=== PATIENT | female | born 1965 | race Caucasian/White ===

== ENCOUNTER 2016-08-24 14:20 | Observation (INO) ==
[2016-08-24] MEDS ORDERED: Aspirin 81 MG TAB.CHEW PO ONE (14:28)
[2016-08-24] MEDS ORDERED: Ipratropium/Albuterol Neb 3 ML IH ONE (14:34)
--- NOTE | 2016-08-24 14:34 | Emergency Department Note ---
Disposition Clinical Impression: Chest pain Qualifiers: Chest pain type: unspecified Qualified Code(s): R07.9 - Chest pain, unspecified Disposition: Admitted As Inpatient Condition: Good Referrals: Huong Kitchen CNP [Primary Care Provider] - Forms: ED Satisfaction Letter Time of Disposition: 15:42 Chest Pain HPI - General Chief Complaint: ED Chest Pain Stated Complaint: CP/SOB Time Seen by Provider: 08/24/16 14:28 Source: patient Limitations: no limitations Vital Signs Reviewed: Yes Nursing Notes Reviewed: Yes - History of Present Illness HPI Narrative: 51-year-old female with a history of coronary artery disease 1 stent 2 years ago comes in complaining of some weight gain and shortness of breath and some chest pain. Patient states she has not had any recent cardiac workup. Patient does have a history of coronary artery disease with multiple risk factors including hypertension diabetes family history cigarette smoking. 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 Duration: constant Onset: during rest Pain Location: substernal, left chest Severity scale (1-10): 10 Quality: tightness, aching Pain Radiation: none Improves with: nothing Worsens with: exertion Associated symptoms: Denies: nausea, vomiting Treatments prior to arrival chest pain: aspirin - Related Data Home Medications Medication Instructions Recorded Confirmed Alprazolam [Xanax] 0.5 mg PO BID PRN 03/17/15 01/30/16 Aspirin 81 mg PO QAM 03/17/15 01/30/16 Atorvastatin [Lipitor] 80 mg PO QPM 03/17/15 01/30/16 Clopidogrel [Plavix] 75 mg PO QAM 03/17/15 01/30/16 GlipiZIDE [Glucotrol] 5 mg PO QAM 03/17/15 01/30/16 Insulin Glargine,Hum.rec.anlog 30 unit SQ HS 03/17/15 01/30/16 [Lantus Solostar] Metformin [Glucophage] 1,000 mg PO BID 03/17/15 01/30/16 Metoprolol [Lopressor] 25 mg PO BID 03/17/15 01/30/16 Pregabalin [Lyrica] 150 mg PO BID 03/17/15 01/30/16 Citalopram [CeleXA] 20 mg PO QPM 06/06/15 01/30/16 Ergocalciferol (VITAMIN D2) 50,000 unit PO SUTH 06/06/15 01/30/16 [Vitamin D2 (50,000 UNIT)] Hydrocodone/Acetaminophen [[place] 1 tab PO Q4-6H PRN 06/06/15 01/30/16 10-325 Tablet] Lansoprazole [Prevacid] 30 mg PO DAILY 06/06/15 01/30/16 Losartan/Hydrochlorothiazide 1 each PO QAM 06/06/15 01/30/16 [Hyzaar 50-12.5 Tablet] Nitroglycerin 0.4 mg SL AD PRN 06/06/15 01/30/16 Ropinirole [Requip] 0.25 mg PO HS 06/06/15 01/30/16 Mometasone Furoate [Nasonex] 2 spray NS DAILY 11/09/15 01/30/16 Ondansetron HCl [Zofran] 4 - 8 mg PO TID PRN 11/09/15 01/30/16 Oxygen 2 l NS AD 11/09/15 01/30/16 Previous Rx's Medication Instructions Recorded Albuterol Neb [AccuNeb] 0.63 mg IH Q4H PRN #25 units 01/23/16 Allergies Allergy/AdvReac Type Severity Reaction Status Date / Time No Known Allergies Allergy Verified 03/17/15 12:11 Constitutional: Denies: fever, chills, weakness, weight change Eyes: Denies: eye pain, eye discharge, vision change ENT ED: Denies: ear pain, throat pain, dental pain, hearing loss, epistaxis, congestion, dysphagia Cardiovascular: Reports: chest pain, dyspnea on exertion. Denies: palpitations , edema, syncope Respiratory: Reports: cough, dyspnea. Denies: wheezes, hemoptysis, stridor Gastrointestinal: Denies: abdominal pain, nausea, vomiting, diarrhea, constipation, hematemesis, melena, hematochezia Genitourinary: Denies: dysuria, frequency, hematuria, discharge Musculoskeletal: Denies: back pain, neck pain, arthralgia, myalgia Integumentary: Denies: rash, abrasion, lesions Neurological: Denies: headache, weakness, numbness, paresthesias, confusion, abnormal gait, vertigo Psychiatric: Denies: anxiety, depression, suicidal thoughts, homicidal thoughts , auditory hallucinations, visual hallucinations Endocrine: Denies: fatigue Hematological/Lymphatic: Denies: easy bleeding, easy bruising Allergic/Immunologic: Denies: facial swelling, urticaria Chest Pain PMH - Past Medical History Medical history: Reports: arthritis, COPD, coronary artery disease, diabetes, fibromyalgia, GERD, hyperlipidemia, hypertension, myocardial infarction, peripheral artery disease, other Surgical history: Reports: angioplasty/stent, appendectomy, cholecystectomy, hysterectomy, other Psychiatric history: Reports: anxiety, depression 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: Reports: no 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 - Social History Smoking Status: Current every day smoker Alcohol use: Reports: none Drug use: Reports: none Physical Exam - General Limitations: no limitations General appearance: alert - Head Head exam: atraumatic, normocephalic, normal inspection - Eye Eye exam: Present: normal appearance, PERRL, EOMI - ENT ENT exam: normal exam, normal oropharynx, mucous membranes moist - Neck Neck exam: Present: normal inspection, full ROM, trachea midline - Chest Chest inspection: Present: normal inspection, symmetric chest wall rise - Respiratory Respiratory exam: Present: wheezes, prolonged expiratory phase - Cardiovascular Cardiovascular exam: Present: regular rate, normal rhythm, normal heart sounds - Abdominal Exam Abdominal exam: Present: soft, Non-Tender. Absent: tenderness, distention, guarding, rebound, rigidity - Extremities Exam Extremities exam: Present: normal inspection, full ROM. Absent: tenderness, pedal edema - Expanded Lower Extremity Exam Neurovascular/Tendon exam: Absent: motor deficit, sensory deficit, tendon deficit Gait: observed and normal - Back Exam Back exam: Present: normal inspection, full ROM. Absent: tenderness - Neurological Exam Neurological exam: Present: alert, oriented X3 - Psychiatric Psychiatric exam: Present: normal affect, normal mood - Skin Skin exam: Present: warm, dry, intact, normal color Course - Reevaluation(s) Reevaluation #1: 51-year-old comes in complaining of intermittent chest pain has a history of coronary artery disease. Workup here in emergency department is negative doesn' t appear to have failure. Echo done 08/03/2015 shows EF of 60%. No recent stress testing or cardiac catheter. Will admit patient for evaluation. Time: 15:36 - Consultations Consultation #1: Discussed with Dr. Askew, admit Time: 15:42 Vital Signs Temperature 97.5 F L 02/05/17 14:21 Pulse Rate 73 08/24/16 14:21 Respiratory Rate 14 08/24/16 14:21 Blood Pressure 148/82 08/24/16 14:21 O2 Sat by Pulse Oximetry 96 08/24/16 14:21 Temperature 97.5 F L 08/24/16 14:21 Pulse Rate 71 08/24/16 15:01 Respiratory Rate 17 08/24/16 15:01 Blood Pressure 137/74 08/24/16 15:01 O2 Sat by Pulse Oximetry 97 08/24/16 15:01 Oxygen Delivery Oxygen Delivery Room Air Chest Pain - Lab Data Lab results reviewed: Yes I reviewed the patient's lab results. Result diagrams: 08/24/16 14:50 08/24/16 14:50 Lab Results 08/24/16 08/24/16 08/24/16 Range/Units 14:50 14:50 14:50 WBC 8.9 (4.3-11.1) K/mcL RBC 4.17 (3.82-4.97) M/mcL Hgb 12.8 (11.5-15.4) g/dL Hct 38.5 (35.3-44.9) % MCV 92.3 (83.0-100.0) fL MCH 30.7 (28.0-33.3) pg MCHC 33.2 (31.6-35.5) g/dL RDW 12.9 (11.5-14.5) % Plt Count 175 (140-400) K/mcL MPV 9.1 L (9.4-12.4) fL Immature Gran % 0.3 (0-4) % Seg Neutrophils % 46.3 % Lymphocytes % 44.0 % Monocytes % 5.5 % Eosinophils % 3.6 % Basophils % 0.3 % Neutrophils # 4.1 (1.6-8.9) K/mcL Lymphocytes # 3.9 (0.6-4.6) K/mcL Monocytes # 0.5 (0.0-1.3) K/mcL Eosinophils # 0.3 (0.0-0.6) K/mcL Basophils # 0.0 (0.0-0.2) K/mcL PT 11.1 (9.4-12.1) Seconds INR 1.0 APTT 33.0 (26.0-36.0) Seconds Sodium (136-145) mEq/L Potassium (3.5-4.5) mEq/L Chloride (98-109) mEq/L Carbon Dioxide (19-29) mEq/L BUN (7-20) mg/dL Creatinine (0.57-1.11) mg/dL Est GFR ( Amer) (> 60) Est GFR (Non-Af Amer) (> 60) BUN/Creatinine Ratio (6-26) Glucose (70-99) mg/dL Calculated Osmolality (280-300) Calcium (8.6-10.8) mg/dL Troponin I (0-0.03) ng/mL B-Natriuretic Peptide 100 (0-100) pg/mL 08/24/16 08/24/16 Range/Units 14:50 14:50 WBC (4.3-11.1) K/mcL RBC (3.82-4.97) M/mcL Hgb (11.5-15.4) g/dL Hct (35.3-44.9) % MCV (83.0-100.0) fL MCH (28.0-33.3) pg MCHC (31.6-35.5) g/dL RDW (11.5-14.5) % Plt Count (140-400) K/mcL MPV (9.4-12.4) fL Immature Gran % (0-4) % Seg Neutrophils % % Lymphocytes % % Monocytes % % Eosinophils % % Basophils % % Neutrophils # (1.6-8.9) K/mcL Lymphocytes # (0.6-4.6) K/mcL Monocytes # (0.0-1.3) K/mcL Eosinophils # (0.0-0.6) K/mcL Basophils # (0.0-0.2) K/mcL PT (9.4-12.1) Seconds INR APTT (26.0-36.0) Seconds Sodium 140 (136-145) mEq/L Potassium 3.7 (3.5-4.5) mEq/L Chloride 103 (98-109) mEq/L Carbon Dioxide 27 (19-29) mEq/L BUN 9 (7-20) mg/dL Creatinine 0.62 (0.57-1.11) mg/dL Est GFR ( Amer) > 60 (> 60) Est GFR (Non-Af Amer) > 60 (> 60) BUN/Creatinine Ratio 15 (6-26) Glucose 94 (70-99) mg/dL Calculated Osmolality 288 (280-300) Calcium 9.4 (8.6-10.8) mg/dL Troponin I 0.00 (0-0.03) ng/mL B-Natriuretic Peptide (0-100) pg/mL - Radiology Data Radiology results reviewed: Yes I reviewed the patient's radiology results. Chest X-Ray 08/24/16 14:28 IMPRESSION: No acute cardiopulmonary disease. D/ / 08/24/2016 14:50:14 Eyad Foster MD / jonathan Interpreting Provider: Eyad Foster MD - EKG Data EKG attestation: Yes I reviewed and interpreted this EKG. EKG shows normal: sinus rhythm Rate: normal Rhythm: NSR Interpretation: no acute changes Heart Score - Score History: Moderately Suspicious EKG: Normal Age: 45-65 Risk Factors: Equal/Greater than 3 risk factor or history of atherosclerotic disease Troponin: Less than normal limit HEART Score Total: 4
[2016-08-24 14:58] LABS: Hematocrit 38.5 % (35.3-44.9); Hemoglobin 12.8 g/dL (11.5-15.4); Immature Granulocytes % 0.3 % (0-4); Mean Corpuscular HGB Conc 33.2 g/dL (31.6-35.5); Mean Corpuscular Hemoglobin 30.7 pg (28.0-33.3); Mean Corpuscular Volume 92.3 fL (83.0-100.0); Mean Platelet Volume 9.1 fL (9.4-12.4); Monocytes % 5.5 %; Platelet Count 175 K/mcL (140-400); Red Blood Count 4.17 M/mcL (3.82-4.97); Red Cell Distribution Width 12.9 % (11.5-14.5); Segmented Neutrophils % 46.3 %
[2016-08-24 14:59] LABS: Basophils % 0.3 %; Eosinophils # 0.3 K/mcL (0.0-0.6); Eosinophils % 3.6 %; Lymphocytes # 3.9 K/mcL (0.6-4.6); Monocytes # 0.5 K/mcL (0.0-1.3); Neutrophils # 4.1 K/mcL (1.6-8.9)
[2016-08-24 15:08] LABS: Prothrombin Time 11.1 Seconds (9.4-12.1)
[2016-08-24 15:10] LABS: BUN/Creatinine Ratio 15 (6-26); Blood Urea Nitrogen 9 mg/dL (7-20); Calcium 9.4 mg/dL (8.6-10.8); Carbon Dioxide 27 mEq/L (19-29); Chloride 103 mEq/L (98-109); Glucose 94 mg/dL (70-99); Osmolality,Calculated 288 (280-300); Potassium 3.7 mEq/L (3.5-4.5); Sodium 140 mEq/L (136-145); eGFR For African Americans > 60 (> 60); eGFR For Non-African Americans > 60 (> 60)
[2016-08-24] MEDS ORDERED: *HR* Promethazine 25 MG/ML VIAL IVP ONE (15:31)
[2016-08-24] MEDS ORDERED: *HR* HYDROmorphone (PF) 1 MG/ML SYRINGE IVP ONE (15:31)
[2016-08-24] MEDS ORDERED: Nitroglycerin 0.4 MG TAB.SUBL SL PRN (16:46)
--- NOTE | 2016-08-24 16:46 | Internal Med History&Physical ---
Date of Encounter: 08/24/16 Time of Encounter: 16:30 Assessment and Plan (1) Chest pain Current visit: Yes Status: Acute Rule out ACS. Patient with risk factors including diabetes, CAD, and positive family history. first troponin is negative. EKG shoed NSR HR 64. She received aspirin and dilaudid. HEr pain is better. follow up serial troponins. EKG in AM. If these are negative, I she will have stress test. Qualifiers: Chest pain type: unspecified Qualified Code(s): R07.9 - Chest pain, unspecified (2) CAD (coronary artery disease) Current visit: No Status: Chronic ASA, lipitor, metoprolol Qualifiers: Coronary Disease-Associated Artery/Lesion type: [place] artery [place] vs. transplanted heart: [place] heart Associated angina: with unspecified angina Qualified Code(s): I25.119 - Atherosclerotic heart disease of [place] coronary artery with unspecified angina pectoris (3) Diabetes Current visit: No Status: Chronic glucose is 94. ISS. hold metformin. diabetic diet. 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 resume hyzaar. Qualifiers: Hypertension type: essential hypertension Qualified Code(s): I10 - Essential (primary) hypertension (5) Nicotine abuse Current visit: No Status: Chronic nicotine patch. counseled to quit. (6) Obesity Current visit: No Status: Chronic bmi 36. Qualifiers: Obesity type: due to excess calories Obesity severity: morbid Qualified Code(s): E66.01 - Morbid (severe) obesity due to excess calories (7) SPRING on CPAP Current visit: No Status: Chronic Internal Medicine - H&P: HPI Chief complaint: Precordial chest pain this morning Admitted From: Home Plans for Post Hospital Care: Home History of present illness: Ms. Enriquez is a 51 year old female with past medical history of diabetes, CAD status post 1 stent 2 years ago, COPD, hypertension and tobacco use. These morning, she woke up she was getting ready for work she developed precordial chest pain that radiated to her left shoulder blade and was associated with shortness of breath. No syncope. No palpitations. No fever. Cough. No lower extremity swelling. No bleeding. No stomach pain. No urinary complaints. No focal deficit. No headache. In ED, she received aspirin and IV Dilaudid. Her chest pain is still 8/10. Past Med Surg Social Fam HX - Past Medical History Medical history: arthritis, COPD, coronary artery disease, diabetes, fibromyalgia, GERD, hyperlipidemia, hypertension, myocardial infarction, peripheral artery disease, other Psychiatric history: anxiety, depression - Past Surgical History Surgical History: angioplasty/stent, appendectomy, cholecystectomy, hysterectomy , other - Social History Smoking Status: Current every day smoker Smokeless Tobacco Status: No Alcohol use: none Drug use: none - Family History Mother Adopted: No Family Member Ethnicity: Non- Living Status: Hx Family Cardiac Disorders: Yes (heart attacks, multiple stents) Hx Family Endocrine Disorder: Yes (DM) Internal Medicine - H&P: Meds Alprazolam [Xanax] 0.5 mg PO BID PRN 03/17/15 [History] Aspirin 81 mg PO QAM 03/17/15 [History] Atorvastatin [Lipitor] 80 mg PO QPM 03/17/15 [History] Insulin Glargine,Hum.rec.anlog [Lantus Solostar] 30 unit SQ HS 03/17/15 [History ] Metformin [Glucophage] 1,000 mg PO BID 03/17/15 [History] Metoprolol [Lopressor] 25 mg PO BID 03/17/15 [History] Pregabalin [Lyrica] 150 mg PO BID 03/17/15 [History] Citalopram [CeleXA] 20 mg PO QPM 06/06/15 [History] Hydrocodone/Acetaminophen [[place] 10-325 Tablet] 1 tab PO Q4-6H PRN 06/06/15 [ History] Lansoprazole [Prevacid] 30 mg PO DAILY 06/06/15 [History] Losartan/Hydrochlorothiazide [Hyzaar 50-12.5 Tablet] 1 tab PO QAM 06/06/15 [ History] Nitroglycerin 0.4 mg SL AD PRN 06/06/15 [History] Ropinirole [Requip] 0.25 mg PO HS 06/06/15 [History] Mometasone Furoate [Nasonex] 2 spray NS DAILY 11/09/15 [History] Ondansetron HCl [Zofran] 4 - 8 mg PO TID PRN 11/09/15 [History] Oxygen 2 l NS AD 11/09/15 [History] Albuterol Neb [AccuNeb] 0.63 mg IH Q4H PRN #25 units 01/23/16 [Rx] Allergies No Known Allergies Allergy (Verified 03/17/15 12:11) All Systems PM: A 10-system review of systems was performed and is negative for pertinent findings except as documented above in the HPI. - Constitutional Vitals: Temp Pulse Resp BP Pulse Ox 97.5 F L 70 18 153/86 98 08/24/16 14:21 08/24/16 15:51 08/24/16 16:27 08/24/16 16:27 08/24/16 15:51 General appearance: Present: A&O X 3, no acute distress, answers questions appropriately - Eye Eye exam: Present: PERRL, sclera anicteric - Neck Neck exam general surgery: Present: supple, trachea midline. Absent: lymphadenopathy - Respiratory Respiratory exam: Present: CTAB - Cardiovascular Cardiovascular exam: Present: RRR - GI/Abdominal GI/Abdominal exam: Present: normal bowel sounds, soft. Absent: distended, tenderness - Extremities Exam Extremities exam: Absent: pedal edema - Back Exam Back exam: Absent: CVA tenderness (L), CVA tenderness (R) - Neurological Exam Neurological exam: Present: alert, oriented X3. Absent: facial droop, speech deficit - Skin Skin exam: Present: intact. Absent: rash Internal Med - H&P Results - Labs CBC & Chem 7: 08/24/16 14:50 08/24/16 14:50
[2016-08-24] MEDS ORDERED: Naloxone 0.4 MG/ML INJ IVP PRN (16:49)
[2016-08-24] MEDS ORDERED: Acetaminophen 325 MG TABLET PO PRN (16:49)
[2016-08-24] MEDS ORDERED: Ondansetron 4 MG/2 ML VIAL IVP PRN (16:49)
[2016-08-24] MEDS ORDERED: ALPRAZolam 0.5 MG TABLET PO PRN (16:51)
[2016-08-24] MEDS ORDERED: Albuterol Neb 0.63 MG/3 ML VIAL IH PRN (16:51)
[2016-08-24] MEDS ORDERED: D5% in Water 1,000 ML IV PRN (17:35)
[2016-08-24] MEDS ORDERED: Dextrose Gel 15 GM PO PRN ×2 (17:35)
[2016-08-24] MEDS ORDERED: *HR* Dextrose 50 % in Water (Syg) 50 ML SYRINGE IVP PRN (17:35)
[2016-08-24] MEDS: *HR* HYDROcodone/Acet 10/325 mg TABLET PO PRN (18:37)
[2016-08-24] MEDS: Insulin LISPRO 300 UNITS/3 ML VIAL SQ SCH (20:07)
[2016-08-24] MEDS: Pregabalin 75 MG CAPSULE PO SCH (21:32)
[2016-08-24] MEDS: rOPINIRole 0.25 MG TABLET PO SCH (21:32)
[2016-08-25 01:02] LABS: Basophils % 0.2 %; Eosinophils # 0.3 K/mcL (0.0-0.6); Eosinophils % 2.9 %; Hematocrit 35.3 % (35.3-44.9); Hemoglobin 11.9 g/dL (11.5-15.4); Immature Granulocytes % 0.3 % (0-4); Immature Platelets 1.9 % (1.1-6.1); Lymphocytes # 3.9 K/mcL (0.6-4.6); Lymphocytes % 39.3 %; Mean Corpuscular HGB Conc 33.7 g/dL (31.6-35.5); Mean Corpuscular Hemoglobin 31.2 pg (28.0-33.3); Mean Corpuscular Volume 92.4 fL (83.0-100.0); Mean Platelet Volume 9.4 fL (9.4-12.4); Monocytes # 0.6 K/mcL (0.0-1.3); Monocytes % 5.6 %; Neutrophils # 5.1 K/mcL (1.6-8.9); Platelet Count 163 K/mcL (140-400); Red Blood Count 3.82 M/mcL (3.82-4.97); Red Cell Distribution Width 13.1 % (11.5-14.5); Segmented Neutrophils % 51.7 %
[2016-08-25 01:13] LABS: BUN/Creatinine Ratio 19 (6-26); Blood Urea Nitrogen 12 mg/dL (7-20); Calcium 8.9 mg/dL (8.6-10.8); Carbon Dioxide 27 mEq/L (19-29); Chloride 105 mEq/L (98-109); Glucose 111 mg/dL (70-99); Magnesium 1.4 mg/dL (1.6-2.6); Osmolality,Calculated 290 (280-300); Phosphorous 4.8 mg/dL (2.3-4.7); Potassium 3.6 mEq/L (3.5-4.5); Sodium 140 mEq/L (136-145); eGFR For African Americans > 60 (> 60); eGFR For Non-African Americans > 60 (> 60)
[2016-08-25] MEDS: *HR* HYDROcodone/Acet 10/325 mg TABLET PO PRN ×2 (03:07→14:01)
[2016-08-25] MEDS: Insulin LISPRO 300 UNITS/3 ML VIAL SQ SCH ×4 (07:38→20:48)
[2016-08-25] MEDS ORDERED: Regadenoson 0.4 MG/5 ML SYRINGE IVP ONE (09:40)
[2016-08-25] MEDS ORDERED: Magnesium Sulfate 2 GM in D5% in Water 100 ML IVPB ONE (11:53)
--- NOTE | 2016-08-25 12:36 | Nuclear Medicine Stress Report ---
Regadenoson Nuclear Stress Name: Justina Enriquez Date of Study: 08/25/2016 Date: 1965 Ht: 65.0 in Medical Record#: [id number] Age: 51 Wt: 217.0 lb Gender: Female Order #: [id number] Location: [facility] Room: [facility] Supervising Provider: Shin Gonzalez CNP Reading Physician: Nely Finley DO Ordering Physician: Melanie Jarrett MD Primary Care Physician: None Stress Technologist: Padmini Parker HAND PICKER, CCT Burn Nurse: Alaina Whalen Indications: Chest Pain Impression: Technically challenging study with suboptimal imaging. There are 2 separate defects in which ischemia cannot be ruled out. There is a small sized, mild intensity perfusion defect during stress involving the mid to distal anteroseptal wall. There is also small sized, mild intensity primarily fixed apical and apical inferior perfusion defect that is mildly worse on stress. Normal wall motion suggests against the presence of infarct. Pharmacologic ECG was negative for ischemia. Gated EF = 64%. History: Hypertension Diabetes Hypercholesteremia History of Smoking Prior PCI Stress Test Summary: Stress Test Type: Pharmacologic Regadenoson 0.4mg/5ml given IV Baseline Information: Initial Heart Rate: 62 Blood Pressure: 132/78 Stress Information: Test Terminated Due to (primary): As per protocol Maximum Blood Pressure: 116/66 Maximum Heart Rate: 86 Percent Maximum Heart Rate Achieved: 51 Double Product: 9976 METS Reached: 1 Symptoms: No chest symptoms Nuclear Summary: SPECT myocardial perfusion imaging using Tc99m Sestamibi given intravenously was performed at rest and following cardiac stress testing. The resting images were obtained following initial dose of 11.4 mCi. Following stress an additional dose of 34.8 mCi was given at peak exercise or 30 seconds post regadenoson infusion. Medication Given: Time Medication Dose Units Route Findings: Stress Note * Resting ECG demonstrated normal sinus rhythm with possible old anteroseptal VA. * Pharmacologic stress ECG is negative for ischemia at level of heart rate achieved. * No arrhythmias were noted during stress. * Patient had no chest pain during stress. Hemodynamic responses * Normal hemodynamic responses to pharmacologic stress. Study Quality * Technically difficult/limited study. Gated EF % * Gated EF = 64%. Left Ventricle * The left ventricle is not dilated. TID * No evidence of transient ischemic dilatation. Lung Uptake * There is no evidence of increase lung uptake. NORMALS * Normal wall motion. PERFUSION * There is a small sized, mild intensity primarily fixed apical and apical inferior perfusion defect that is mildly worse on stress. * There is also a small sized mild intensity perfusion defect in the mid to distal anteroseptal wall during stress. * Hot spot in the inferoseptum. Updated by Nely Finley on 08/25/2016 12:18:16 PM electronically signed on 08/25/2016 12:29:56 PM with status of Final
[2016-08-25] MEDS: Pregabalin 75 MG CAPSULE PO SCH ×2 (12:58→20:54)
[2016-08-25] MEDS: Aspirin 81 MG TAB.CHEW PO SCH (12:58)
[2016-08-25] MEDS: Losartan/HCTZ 50-12.5 TABLET PO SCH (12:58)
--- NOTE | 2016-08-25 14:53 | Cardiology Consult Note ---
Date of Encounter: 08/25/16 Time of Encounter: 14:42 Assessment and Plan (1) Coronary artery disease with stable angina pectoris Current Visit: Yes Status: Acute - multiple cardiac risk factors including CAD s/p PCI 2014 with MARY LOU to mid RCA, 0.5 ppd smoker, HTN, HLD, IDDM, and morbid obesity - typical and atypical chest pain features, constant chest pressure with radiation to left shoulder which has improved since initial presentation with associated cough and URI symptoms - troponin negative x4 - EKG is NSR without acute ischemic changes - abnormal stress test revealing small sized, mild intensity perfusion defect during stress involving mid to distal anteroseptal wall and a small sized mild intensity primarily fixed perfusion deficit to apical and apical inferior worse on stress - last stress test 05/2015 also showed small apical inferior ischemic with normal EF but remained consistent ot prior study and medical management was decided - continue ASA, ARB, statin, and BB - last LHC 12/2014 with 99% stenosis of mid RCA, received MARY LOU and mild stenotic disease to other vessels - consideration for possible LHC tomorrow, will try medical management today and reassess, start on Imdur 30 mg - NPO at midnight Qualifiers: Coronary Disease-Associated Artery/Lesion type: [place] artery [place] vs. transplanted heart: [place] heart Qualified Code(s): I25.118 - Atherosclerotic heart disease of [place] coronary artery with other forms of angina pectoris (2) Tobacco abuse Current Visit: Yes Status: Acute - encouraged smoking cessation, patient continues to cut down - currently 0.5 ppd Discussion w patient/family: The assessment and plan as outlined above was discussed with the patient and/or family members who expressed understanding and agreement. All questions were answered. Thank you for involving us in the care of your patient. Please call with any questions. History of Present Illness Consult date: 08/25/16 Requesting physician: Sirisha Jarrett Consult reason: Chest pain, abnormal stress test Chief complaint: CP History of present illness: Ms. Enriquez is a 51 year old female with a past medical history of CAD s/p PCI 2014 (MARY LOU mid RCA), COPD, HTN, PVD, DM, HLD, current smoker 0.5 ppd, and morbid obesity presented to the ED for chest pain. Describes retrosternal sharp chest pressure with radiation to the left shoulder, admits to associated shortness of breath, diaphoresis and nausea. Denies any lightheadedness, vomiting, palpitations, or syncope. Similar to her normal angina. In the ED she received a baby aspirin and dilaudid with mild improvement in her pain. Reports URI symptoms over the past 1 week with cough and congestion. Denies any recent travel, surgeries, or trauma. Troponin negative x4. EKG reviewed and did not show any acute ischemic changes. Stress test 08/25 revealed a small sized, mild intensity perfusion defect during stress involving mid to distal anteroseptal wall and a small sized mild intensity primarily fixed perfusion deficit to apical and apical inferior worse on stress. Last stress test 05/2015 also showed small apical inferior ischemic with normal EF but remained consistent ot prior study and medical management was decided. Important CV studies: - ECHO 08/03/15 - EF 60% without wall motion abnormality - Holter 08/07/15 - NSR with occasional PVC - C 12/2014 - EF 55%, 99% stenosis mid RCA, MARY LOU placed - 40% stenosis mid LAD - 30% stenosis prox LAD - 30% stenosis 1st diagonal - 30% stenosis prox and mid circumflex - 30% stenosis 1st OM Past Med Surg Social Fam HX - Past Medical History Medical history: arthritis, COPD, coronary artery disease, diabetes, fibromyalgia, GERD, hyperlipidemia, hypertension, myocardial infarction, peripheral artery disease, other Psychiatric history: anxiety, depression - Past Surgical History Surgical History: angioplasty/stent, appendectomy, cholecystectomy, hysterectomy , other - Social History Smoking Status: Current every day smoker Packs per day: 0.5 Smokeless Tobacco Status: No Alcohol use: none Drug use: none - Family History Mother Adopted: No Family Member Ethnicity: Non- Living Status: Hx Family Cardiac Disorders: Yes (heart attacks, multiple stents) Hx Family Endocrine Disorder: Yes (DM) Medications and Allergies Alprazolam [Xanax] 0.5 mg PO BID PRN 03/17/15 [History] Aspirin 81 mg PO QAM 03/17/15 [History] Atorvastatin [Lipitor] 80 mg PO QPM 03/17/15 [History] Insulin Glargine,Hum.rec.anlog [Lantus Solostar] 30 unit SQ HS 03/17/15 [History ] Metformin [Glucophage] 1,000 mg PO BID 03/17/15 [History] Metoprolol [Lopressor] 25 mg PO BID 03/17/15 [History] Pregabalin [Lyrica] 150 mg PO BID 03/17/15 [History] Citalopram [CeleXA] 20 mg PO QPM 06/06/15 [History] Hydrocodone/Acetaminophen [[place] 10-325 Tablet] 1 tab PO Q4-6H PRN 06/06/15 [ History] Lansoprazole [Prevacid] 30 mg PO DAILY 06/06/15 [History] Losartan/Hydrochlorothiazide [Hyzaar 50-12.5 Tablet] 1 tab PO QAM 06/06/15 [ History] Nitroglycerin 0.4 mg SL AD PRN 06/06/15 [History] Ropinirole [Requip] 0.25 mg PO HS 06/06/15 [History] Mometasone Furoate [Nasonex] 2 spray NS DAILY 11/09/15 [History] Ondansetron HCl [Zofran] 4 - 8 mg PO TID PRN 11/09/15 [History] Oxygen 2 l NS AD 11/09/15 [History] Albuterol Neb [AccuNeb] 0.63 mg IH Q4H PRN #25 units 01/23/16 [Rx] Allergies No Known Allergies Allergy (Verified 03/17/15 12:11) All Systems Review: A 10-system review of systems was performed and is negative for pertinent findings except as documented above in the HPI. - Constitutional Constitutional: chills, no fever(s), no headache(s) - Cardiovascular Cardiovascular: as per HPI, chest pain at rest, chest pain with exertion, dyspnea on exertion, no dyspnea at rest - Respiratory Respiratory: cough, dyspnea - Gastrointestinal Gastrointestinal: no abdominal pain Physical Examination Vital Signs, Last 4 Hours Temp Pulse Resp BP Pulse Ox 08/25/16 12:00 98.1 F 77 16 124/80 94 L General: Conversant, No Apparent Distress HEENT: Atraumatic, Normocephaly, Mucus Membranes Moist Neck: No JVD, Normal carotid pulses Cardiac: Reg Rate and Rhythm, Normal S1 and S2, No Murmur Lungs: Normal Breath Sounds, No Wheeze, Rales, Rhonchi Neuro: Alert and responsive, No focal deficits noted Abdomen: Soft, Non-Tender Skin: No rashes noted on visualized skin Musculoskeletal: No Chest Wall Tenderness Extremities: No Clubbing, No Cyanosis, No Edema, Normal Pulses Results 08/25/16 00:48 08/25/16 00:48 Lab Results 08/24/16 08/25/16 08/25/16 18:15 00:48 00:48 WBC 9.8 Hgb 11.9 Hct 35.3 Plt Count 163 Sodium Potassium Chloride Carbon Dioxide BUN Creatinine Glucose Calcium Magnesium Troponin I 0.00 0.00 08/25/16 08/25/16 00:48 06:32 WBC Hgb Hct Plt Count Sodium 140 Potassium 3.6 Chloride 105 Carbon Dioxide 27 BUN 12 Creatinine 0.63 Glucose 111 H Calcium 8.9 Magnesium 1.4 L Troponin I 0.00 - Imaging and Cardiology Chest Xray: report reviewed, image reviewed Stress Test: report reviewed - EKG Interpretation EKG results cardiology: personally reviewed, normal ECG, sinus rhythm, no diagnostic ischemia Consult Discharge Plan - Plan Referrals: Huong Kitchen, MOLDER OPERATOR [Primary Care Provider] -
--- NOTE | 2016-08-25 17:30 | Internal Med Progress Note ---
Date of Encounter: 08/25/16 Time of Encounter: 13:30 - Assessment and plan (1) Chest pain Current Visit: Yes Status: Acute Assessment and plan: Atypical chest pain with h/o- CAD s/p stent and risk factors. Continue Telemetry monitoring. Serial Troponins remain negative for ACS. Continue PRN IV Morphine and sublingual Nitroglycerine for pain control. Continue ASA, statin and beta-ciara. Nuclear stress test noted to be abnormal with questionable areas of ischemia; Cardiology consult appreciated- recommend adding Imdur and possible left heart cath in am; f/up Echocardiogram; Qualifiers: Chest pain type: precordial pain Qualified Code(s): R07.2 - Precordial pain (2) COPD (chronic obstructive pulmonary disease) Current Visit: Yes Status: Chronic Assessment and plan: not noted to be acute exacerbation; continue PRN bronchodilators and supplemental O2 as needed; Qualifiers: COPD type: unspecified COPD Qualified Code(s): J44.9 - Chronic obstructive pulmonary disease, unspecified (3) CAD (coronary artery disease) Current Visit: Yes Status: Chronic Qualifiers: Coronary Disease-Associated Artery/Lesion type: [place] artery [place] vs. transplanted heart: [place] heart Associated angina: with unspecified angina Qualified Code(s): I25.119 - Atherosclerotic heart disease of [place] coronary artery with unspecified angina pectoris (4) Tobacco abuse Current Visit: Yes Status: Chronic Assessment and plan: refuses Nicotine transdermal patch at this time; (5) HLD (hyperlipidemia) Current Visit: Yes Status: Chronic Qualifiers: Hyperlipidemia type: unspecified Qualified Code(s): E78.5 - Hyperlipidemia , unspecified (6) HTN (hypertension) Current Visit: Yes Status: Chronic Assessment and plan: BP well controlled; continue home meds, started Imdur for ongoing chest pain issues; Qualifiers: Hypertension type: essential hypertension Qualified Code(s): I10 - Essential (primary) hypertension (7) SPRING on CPAP Current Visit: Yes Status: Chronic (8) Obesity Current Visit: Yes Status: Chronic Qualifiers: Obesity type: due to excess calories Obesity severity: morbid Qualified Code(s): E66.01 - Morbid (severe) obesity due to excess calories - Subjective Interval history: Reports return in retrosternal chest pain since returning from her stress test today. No nausea, vomiting, dyspnea; - Constitutional Vitals: Temp Pulse Resp BP Pulse Ox 98.1 F 77 16 124/80 94 L 08/25/16 12:00 08/25/16 12:00 08/25/16 12:00 08/25/16 12:00 08/25/16 12:00 General appearance: Present: A&O X 3, no acute distress, answers questions appropriately - Head Head exam: Present: atraumatic, normocephalic - Neck Neck exam general surgery: Present: supple, trachea midline. Absent: lymphadenopathy - Respiratory Respiratory exam: Present: CTAB. Absent: accessory muscle use, rales, rhonchi, wheezes - Cardiovascular Cardiovascular exam: Present: RRR, +S1, +S2. Absent: diastolic murmur, gallop, rubs, systolic murmur - GI/Abdominal GI/Abdominal exam: Present: normal bowel sounds, soft (obese and nontender), no peritoneal signs. Absent: distended, tenderness - Extremities Exam Extremities exam: Present: full ROM, warm, radial pulses palpable and symetrical. Absent: calf tenderness, cyanotic, pedal edema - Neurological Exam Neurological exam: Present: CN II-XII intact, oriented X3, no focal deficits. Absent: pronater drift, facial droop, speech deficit - Skin Skin exam: Present: dry, intact Internal Medicine: Result - Labs CBC & Chem 7: 08/25/16 00:48 08/25/16 00:48 Labs: Short CBC 08/25/16 Range/Units 00:48 WBC 9.8 (4.3-11.1) K/mcL Hgb 11.9 (11.5-15.4) g/dL Hct 35.3 (35.3-44.9) % Plt Count 163 (140-400) K/mcL Neutrophils # 5.1 (1.6-8.9) K/mcL BMP 08/25/16 00:48 Sodium 140 Potassium 3.6 Chloride 105 Carbon Dioxide 27 BUN 12 Creatinine 0.63 Glucose 111 H Calcium 8.9 Cardiac Enzymes 08/24/16 08/25/16 08/25/16 Range/Units 18:15 00:48 06:32 Troponin I 0.00 0.00 0.00 (0-0.03) ng/mL - ABG Interpretation ABG results: PT/INR, D-dimer PT 11.1 Seconds (9.4-12.1) 08/24/16 14:50 Consult Discharge Plan - Plan Referrals: Huong Kitchen CNP [Primary Care Provider] -
[2016-08-25] MEDS: Isosorbide MONOnitrate (24 HR) 30 MG TAB.ER.24H PO SCH (17:31)
--- NOTE | 2016-08-25 17:38 | Electrocardiograph Report ---
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
[2016-08-25] MEDS: rOPINIRole 0.25 MG TABLET PO SCH (20:54)
[2016-08-25] MEDS: Ciprofloxacin OPTH Soln 2.5 ML BOTTLE RIGHT EYE SCH ×2 (22:41→23:07)
[2016-08-26] MEDS: Ciprofloxacin OPTH Soln 2.5 ML BOTTLE RIGHT EYE SCH ×4 (06:16→22:06)
[2016-08-26] MEDS: Losartan/HCTZ 50-12.5 TABLET PO SCH (09:30)
[2016-08-26] MEDS: Pregabalin 75 MG CAPSULE PO SCH ×2 (09:30→20:50)
[2016-08-26] MEDS: Aspirin 81 MG TAB.CHEW PO SCH (09:31)
[2016-08-26] MEDS: Isosorbide MONOnitrate (24 HR) 30 MG TAB.ER.24H PO SCH (09:31)
[2016-08-26] MEDS: Insulin LISPRO 300 UNITS/3 ML VIAL SQ SCH ×4 (09:31→20:48)
--- NOTE | 2016-08-26 09:32 | Event Note ---
Date of Encounter: 08/26/16 Time of Encounter: 09:00 - Cardiology Event Note Seen and examined. Hx of PCI to RCA in December 2014. Atypical chest pain symptoms. Echocardiogram results pending. Regadenoson Nuclear 08/25/16: small, mild intensity perfusion defect to distal anteroseptal wall and small, mild intensity fixed apical/apical inferior perfusion defect. Patient elects to proceed with C today, further recommends pending C. Alternatives, risks, and benefits discussed; she agrees to proceed. The patient was discussed and reviewed with Dr. Rafiq He who agrees with plan. Laboratory Tests 08/24/16 08/24/16 08/25/16 14:50 18:15 00:48 Creatinine Est GFR ( Amer) Troponin I 0.00 0.00 0.00 08/25/16 08/25/16 00:48 06:32 Creatinine 0.63 Est GFR ( Amer) > 60 Troponin I 0.00
[2016-08-26] MEDS: *HR* HYDROcodone/Acet 10/325 mg TABLET PO PRN ×3 (09:33→22:06)
--- NOTE | 2016-08-26 09:49 | ECHO - Doppler Report ---
Echocardiogram Name: Justina Enriquez Date of Study: 08/25/2016 Date: 1965 Ht: 65.0 in Medical Record#: [id number] Age: 51 Wt: 217.0 lb Gender: Female BSA: 2.05 Order #: [id number] Location: [facility] Room #: 3B32 Reading Physician: Nely Finley DO Studio Artist: Sabrina Morgan RVT Ordering Physician: Melanie Jarrett MD Primary Physician: Huong Kitchen CNP Indications: Abnormal stress test, Chest pain Impressions: LVEF 65%. Normal left ventricular size and systolic function. There is evidence of moderate diastolic dysfunction of the left ventricle. Normal right ventricular size and function. No significant valvular dysfunction. No pulmonary hypertension. Left Ventricular Wall Motion: Rest Echo Findings All wall segments showed normal motion. Findings: Study Quality * Technically sub-optimal due to body habitus. ECG Findings * Normal sinus rhythm. Aortic Valve * No aortic regurgitation. * Aortic valve not well visualized. * No aortic stenosis. Mitral Valve * No mitral regurgitation. * Normal mitral valve structure. * No mitral stenosis. Tricuspid Valve * Tricuspid valve not well visualized. * Trace tricuspid regurgitation. * Estimated RA pressure is 3 mmHg. * Estimated RVSP is 27 mmHg. * No pulmonary hypertension. Pulmonic Valve * Pulmonic valve is not well visualized. * No pulmonic stenosis. * No pulmonic regurgitation. Pulmonary Artery * Pulmonary artery not well visualized. Left Ventricle * Normal LV chamber size, wall thickness and function. * Moderate left ventricular diastolic dysfunction. * LVEF 65%. Right Ventricle * Normal right ventricular structure and function. Right Atrium * Normal right atrial size. Left Atrium * Mildly dilated left atrium. Interatrial Septum * No evidence of PFO by color Doppler. IVC * The IVC is not dilated. Pericardium * There is no pericardial effusion present. Aorta * Not well visualized. History Hypertension Diabetes Hypercholesteremia History of Smoking Years 38 Packs 1 Family History of CAD History of CAD/PTCA 08-03-2015 a Previous Echo was performed. Measurements: BP: 107/ 67 2D Normal Values RVIDd: 2.90 cm <2.7 cm IVSd: .90 cm 0.6 - 1.0 cm LVIDd: 5.50 cm 3.7 - 5.6 cm LVPWd: .90 cm 0.6 - 1.1 cm LVIDs: 4.00 cm 1.5 - 3.6 cm AO: 2.30 cm < 4.0 cm LA: 3.80 cm 2.0 - 4.0cm %FS: 31.00 cm >25 % LVOT Diam: 2.00 cm LA volume: 67 Mitral Valve Peak E:1.12 m/sec Peak A:1.04 m/sec E/A Ratio:1.1 Peak E' Lat Jak:6.02 cm/s Peak E' Med Jak:6.27 cm/s E/E' Lat Ratio:18.6 E/E' Med Ratio:17.9 LVOT Peak Jak:1.34 m/sec Mean Jak:.87 m/sec Peak Grad:7.00 mmHg Mean Grad:3.00 mmHg Aortic Valve Peak Jak:2.50 m/sec Mean Jak:1.66 m/sec Peak Grad:25.00 mmHg Mean Grad:13.00 mmHg Valve Area:1.77 cm2 Tricuspid Valve TV Regurg Peak Grad: 24.00mmHg TV Regurg Peak Jak: 2.46m/sec Updated by Nely Finley on 08/26/2016 9:42:05 AM electronically signed on 08/26/2016 9:43:00 AM with status of Final Wall Motion [place]: 1=Normal, 2=Hypokinesis, 3=Akinesis, 4=Dyskinesis, 5=Aneurysmal, 6=Hyperkinetic, X=Not Visualized (Blank)=Missing
--- NOTE | 2016-08-26 10:01 | Pre-Sedation Evaluation ---
Pre-sedation evaluation - Pre-sedation checklist Date of procedure: 08/26/16 Procedure: [facility] Recent Vitals: Last Vital Signs Temp 98.0 F 08/26/16 08:20 Pulse 79 08/26/16 08:20 Resp 16 08/26/16 08:20 BP 116/70 08/26/16 08:20 Pulse Ox 94 L 08/26/16 08:20 H&P (including ROS) documented in medical record: Yes Previous reaction to sedatives/anesthetics: No Dietary Status: NPO after Midnight Airway Assessment: Patient can open mouth completely, TMJ function normal, Micrognathia (under-bite, receding chin) absent, Neck with adequate range of motion Dentition: No loose teeth or bridges Possible difficult airway: No ASA Classification *see protocol: CLASS II-Mild systemic disease Plan of Care: Pt appropriate candidate for procedure/moderate/conscious sedation , Risks/benefits of procedure/sedation discussed w/ patient/family
[2016-08-26] MEDS ORDERED: *HR* Heparin 10,000 UNIT/10 ML VIAL ONE (10:24)
[2016-08-26] MEDS ORDERED: 0.9 % Sodium Chloride 1,000 ML ONE ×2 (10:24→11:18)
[2016-08-26] MEDS ORDERED: Heparin 1,000 UNITS/500 mL NS 500 ML ONE (10:24)
[2016-08-26] MEDS ORDERED: Nitroglycerin 1,000 MCG/10 ML VIAL IV ONE (10:24)
[2016-08-26] MEDS ORDERED: *HR* Bivalirudin 250 MG VIAL IVC ONE (11:15)
[2016-08-26] MEDS ORDERED: *HR* Midazolam HCl 2 MG/2 ML VIAL ONE (11:15)
[2016-08-26] MEDS ORDERED: *HR* FentaNYL (PF) 100 MCG/2 ML VIAL ONE (11:15)
--- NOTE | 2016-08-26 11:58 | Invasive Diagnostic Lab Proc ---
Name: Justina Enriquez Date of Study: 08/26/2016 Date: 1965 Ht: 65.0in Medical Record#: [id number] Age: 51 Wt: 218.26lb Gender: Female BSA: 2.05 Order #: [id number] BMI: 36.36 Physicians Procedure Physician: Melania He MD, [facility] Referring MD: Referring MD: Staff Name Position Time In Shaila Gomez RT Monitor 11:22 AM Karlie Khan RN Newspaper Managing Editor 11:23 AM Medina Laguerre RT (R) Scrub 11:23 AM Re Mares RN Newspaper Managing Editor 11:23 AM Indications Indication Abnormal Test - Stress Procedures Performed Procedure L HRT ARTERY/VENTRICLE ANGIO Pre-Procedure Checklist Informed consent is complete signed and on chart. H\\T\\P is on chart. ID band is on and ID verified with patient. Patient NPO for procedure The procedure was described for the patient and questions were answered. ECG is on chart. Plan of Care Patient will tolerate the procedure without complications. Adequate level of comfort will be maintained. Hemodynamics will remain stable Patient will recover from procedure without complications. Respiratory function will be maintained. Cardiac rhythm will remain stable. Patient temperature will be maintained. Patient and/or family have verbalized understanding of the procedure. Patient Education Chief Complaint/Reason for Test: Cardiac Cath Developmental Category: Adult (18-64 years) Developmentally Appropriate for Age: Yes Learning Barriers: None Education Needs: Procedure Education Method: Verbal Information Taught: Cardiac Cath Educational Evaluation: Able to repeat information Intravenous Access Time IV Size Location DC'd Fluid/Drip Rate Units RN Started with 18g needle 1 4" Rt Antecubital Allergies No Known Allergies NKA Vital Signs Time BP (mmHg) HR (bpm) O2 Sat. RR (bpm) LOC 116 / 70 79 94 % 16 5 = Fully awake and oriented or at pre-proc level 11:25 AM / % 5 = Fully awake and oriented or at pre-proc level 11:26 AM / % 5 = Fully awake and oriented or at pre-proc level 11:20 AM 139 / 73 54 93 % 4 11:25 AM 126 / 77 57 90 % 13 11:30 AM 128 / 69 55 89 % 11:35 AM 126 / 70 62 94 % 14 11:40 AM 125 / 69 60 96 % 18 Procedural Medications Time Medication Dose Units Method Given By 11:21 AM Versed 2 mg Intravenous Karlie Khan RN 11:21 AM Fentanyl 50 mcg Intravenous Karlie Khan RN 11:25 AM Oxygen 2 L/min nasal cannula Karlie Khan RN 11:28 AM Lidocaine 2% 17 ml Subcutaneous Melania He MD, FACC 11:30 AM Oxygen 4 L/min nasal cannula Karlie Khan RN 11:31 AM Oxygen 6 L/min nasal cannula Karlie Khan RN Nasir Score Preprocedure Postprocedure Activity 2- Moves 4 extremities sustained head lift Activity 2- Moves 4 extremities sustained head lift Circulation 2- SBP +/= 20 points of pre-anesthetic level Circulation 2- SBP +/= 20 points of pre-anesthetic level Consciousness 2- Awake and alert oriented x 3 Consciousness 2- Awake and alert oriented x 3 O2 Saturation 2- Able to maintain O2 satruation of 92% on room air O2 Saturation 2- Able to maintain O2 satruation of 92% on room air Respiratory 2- Able to deep breathe and cough well Respiratory 2- Able to deep breathe and cough well Total Score 10 Total Score 10 Contrast Agent: Isovue Diagnostic Contrast: 63 ml Total Contrast: 63 ml Fluoro Dose: 432 mGy Procedure Log Time Note Enter By 11:10 AM 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 tsites 11:19 AM CathStat 11:19 AM Vitals capture started with the following parameters, Patient=Adult, Interval=5 min, Initial Byatwdur=503 mmHg, Deflation Rate=5 mmHg, Cuff placed on Left Leg 11:20 AM HR=54 bpm, KUVI=263/73 mmhg, SpO2=93.0 %, Resp=4 B/min, Comment=sb 11:21 AM Time: 11:21 Versed 2 mg Intravenous Given by Karlie Khan RN tsites 11:22 AM Time: 11:21 Fentanyl 50 mcg Intravenous Given by Karlie Khan RN tsites 11:23 AM Shaila Gomez RT Position: Monitor Time in: 11: tsites 11:23 AM Karlie Khan RN Position: Newspaper Managing Editor Time in: 11: tsites 11: AM Medina Laguerre RT (R) Position: Scrub Time in: :23 tsites 11: AM Patient charges- Angio tray pack, Navilyst 3mm J, Pulse Oximetry and ACIST tubing and transducer tsites 11: AM Case Delayed No tsites : AM Hair removed from procedure site in procedure lab using clippers. Bilateral groin prepped with Chloraprep by Shaila Gomez RT then patient draped. Skin intact. tsites 11: AM Time: Oxygen on at 2 L/min per nasal cannula by Karlie Khan RN tsites : AM HR=57 bpm, OEKL=552/77 mmhg, SpO2=90.0 %, Resp=13 B/min, Comment=sb AM Time: Patient comfortable and pain free: Yes ts: AM Time: LOC: 5 = Fully awake and oriented or at pre-proc level tsites AM Time: Patient comfortable and pain free: Yes kkner AM Time: LOC: 5 = Fully awake and oriented or at pre-proc level kkner : AM Time out performed according to hospital policy kk: AM Time: 17 ml Lidocaine 2% to right groin Subcutaneous Given by Melania He MD, [facility] kkner 11: AM 5Fr FL 4 catheter inserted over the wire [facility] kk: AM Pressure channel 1 zeroed. 11: AM wire removed kkner : AM Recorded Pressure: Ao, HR=54, Condition=Condition 1 (Aorta) Ao 95/58/74 11:30 AM LCA angiography performed in multiple views. kkner 11:30 AM HR=55 bpm, PFNR=550/69 mmhg, SpO2=89.0 %, Comment=sb 11: AM Time: 11:30 Oxygen on at 4 L/min per nasal cannula by Karlie Khan RN kkner 11:30 AM Catheter removed kkner 11: AM 5Fr FR 4 catheter inserted over the wire [facility] kkner 11: AM wire removed kkner 11: AM Time: :31 Oxygen on at 8 L/min per nasal cannula by Karlie Khan RN 11:32 AM Recorded Pressure: Ao, HR=62, Condition=Condition 1 (Aorta) Ao 100/60/79 11:32 AM RCA angiography performed in multiple views. kk 11:32 AM Catheter removed 11:33 AM 5Fr Pigtail catheter inserted over the wire DNC 11:33 AM wire removed 11:33 AM Catheter selectively placed in left ventricle kk 11:34 AM Pressure channel 1 zeroed. 11:34 AM Recorded Pressure: LV, HR=61, Condition=Condition 1 (Left Ventricle) LV 106/14/15 11:34 AM Bolus angiogram of left Ventricle complete: 8 ml/sec for a total of 24 mls kk 11:34 AM Recorded Pressure: LV, Ao, HR=65, Condition=Condition 1 (Left Ventricle) LV 108/17/20, (Aorta) Ao 98/59/79 11:35 AM Catheter removed 11:35 AM HR=62 bpm, QNRZ=008/70 mmhg, SpO2=94.0 %, Resp=14 B/min, Comment=sb 11:35 AM Bolus angiogram of right Femoral complete: 2 ml/sec for a total of 4 mls 11:36 AM Procedure completed at 11:36 11:37 AM Sign out completed: Radiation Dose 432 mGy Fluoro Time: 1.5 Isovue 370 - 200ml contrast 62.9 ml given by Melania He MD, [facility]. Complications: NoneCardiac Rehab Consult needed: NoConfirmed administered medications: Yes 11:37 AM Isovue 370 - 200ml,1 Bottle(s) used. kk 11:38 AM Arterial sheath pulled, Mynx closure device used and was Successful [id number] S/N. kk 11:38 AM Post ECG NSR 11:38 AM Post Blood Pressure 126/70 kk 11:39 AM 11:38 Post Pulses Bilateral DP \\T\\ PT 1+ kk 11:39 AM Information taught Cardiac Cath and Mynx kk 11:39 AM Education needs Procedure, Plan of Care, and Responsibilities of Patient in Care kk 11:39 AM Learning barriers :None kkall 11:39 AM Education Methods Verbal kkallner 11:39 AM Education evaluation Able to repeat information kkallner 11:39 AM Site status No bleeding/hematoma - Rt Groin as reported by Medina Laguerre RT (R) at 11:39 kkallner 11:39 AM Opsite applied kkallner 11:39 AM Plavix, Effient or Brilinta given No kkallner 11:39 AM Delay to floor No kkallner 11:39 AM patient has no family at this time kkallner 11:40 AM Complications: None kkallner 11:40 AM Fluoro Time: 1.5 kkallner 11:40 AM Isovue 370 - 200ml contrast 62.9 ml given by Melania He MD, FACC. kkallner 11:40 AM Radiation Dose 432.01 mGy kkallner 11:40 AM HR=60 bpm, GRRI=825/69 mmhg, SpO2=96.0 %, Resp=18 B/min 11:42 AM Coronary Dominance: right kkallner 11:42 AM Lesion found in LMCA. Pre Stenosis: 15 Pre NICOLE Flow: kkall 11:42 AM Lesion found in Proximal LAD. Pre Stenosis: 40 Pre NICOLE Flow: kkall 11:42 AM Lesion found in Proximal Circumflex. Pre Stenosis: 25 Pre NICOLE Flow: kkallner 11:43 AM Lesion found in Mid Circumflex. Pre Stenosis: 30 Pre NICOLE Flow: kkallner 11:43 AM Lesion found in Mid RCA. Pre Stenosis: 30 Pre NICOLE Flow: kkallner 11:43 AM Lesion found in Distal RCA. Pre Stenosis: 30 Pre NICOLE Flow: kkall 11:43 AM Left Main Coronary Artery with 15% stenosis kkallner 11:44 AM Proximal Left Anterior Descending Coronary Artery with 40% stenosis. If graft is supplying this territory, 0 % stenosis. kkallner 11:44 AM Circumflex, Obtuse Marginal, Left Posterior Descending, and Left Posterolateral Coronary Arteries with 30 % stenosis. If graft is supplying this area, 0 % stenosis kkallner 11:44 AM Right Coronary, Right Posterior Descending Arteries with Right Posterolateral and Acute Marginal branches with 30 % stenosis. If graft is supplying this area, 0 % stenosis kkallner 11:47 AM Patient out of room: 11:47 kkallner 11:47 AM Report given to RN Pt taken to 3B Room #32. 11:47 kkallner Complications Complication None None Hemodynamics Pressures Site Systolic/A Wave Diastolic/V Wave Mean AO 95 58 74 AO 100 60 79 LV 106 14 15 LV 108 17 20 AO 98 59 79 Post Procedure Information Blood Pressure: 126/70 mmHg Rhythm: NSR Post procedural instructions were given Site Checks Time Location Status Staff Sheath In? Note 11:39 AM Rt Groin No bleeding/hematoma Medina Laguerre RT (R) Pulses Time Site Pre-Procedure Post-Procedure Note 11:38:00 AM Bilateral DP \\T\\ PT 1+ Updated by Shaila Gomez RT (R) on 08/26/2016 11:53:56 AM electronically signed on 08/26/2016 11:54:20 AM with status of Final
--- NOTE | 2016-08-26 12:39 | Event Note ---
Date of Encounter: 08/26/16 Time of Encounter: 12:30 - Cardiology Event Note LHC: non-obstructive CAD, prior stent patent. TTE: EF 65%, normal wall motion. Continue home medications including asa, statin, betablocker, & nitrates. Consider non-cardiac cause of constant chest pain--suspect pleuritic etiology as patient has had URI symptoms for 2+ weeks. Follow-up with Dr. Finley in 2-3 weeks-- will arrange. Risk factor modification emphasized including heart healthy diet, daily exercise , tight glycemic control, and tobacco cessation.
--- NOTE | 2016-08-26 13:23 | Invasive Diagnostic Lab ---
Name: Justina Enriquez Date of Study: 08/26/2016 Date: 1965 Ht: 165.0 cm /65.0 in Medical Record#: [id number] Age: 51 Wt: 99. kg / 218.26 lb Account/Order#: [id number] Gender: Female BSA: 2.05 Order #: [id number] Fluoro Dose: 432 mGy BMI: 36.36 Procedure Physician: Melania He MD, FACC Referring MD: Referring MD: Procedures Performed: LEFT HEART CATH Indications: Abnormal Test - Stress Impressions: Single vessel coronary artery disease. Previously stented RCA patent. The left ventricle is normal and has normal contractility EF 65% Recommendations: Optimal medical therapy of patient's disease. Aggressive risk factor modification. History/Risk Factors: OBESITY COPD Diabetes Hypertension Current/Recent Smoker Previous PCI Complications: None, None Contrast: Isovue 63ml Hemodynamics: Pressures Site Systolic/ A Wave Diastolic/ V Wave End Diastolic/ Mean HR AO 95 58 74 54 AO 100 60 79 62 LV 106 14 15 61 LV 108 17 20 66 AO 98 59 79 64 LV Ventriculography Ejection Method: LV Gram Ejection Fraction: 65% Wall Motion: HUI Anterobasal Normal Anterolateral Normal Apical: Normal Inferoapical Normal Inferobasal Normal Coronary Dominance: right Lesion Findings/Interventions * Left Main Coronary Artery There is a 15% stenosis in the LMCA. * Left Anterior Descending There is a 40% stenosis in the Proximal LAD. The lesion has mild calcification noted. * Circumflex There is a 25% stenosis in the Proximal Circumflex. There is a 30% stenosis in the Mid Circumflex. * Right Coronary Artery The Proximal RCA has a patent stent present from a previous procedure. There is a 30% stenosis in the Mid RCA. There is a 30% stenosis in the Distal RCA. Updated by RT Kelly (R) on 08/26/2016 11:51:51 AM Melania He MD, FACC electronically signed on 08/26/2016 1:18:37 PM with status of Final
--- NOTE | 2016-08-26 16:10 | Internal Med Progress Note ---
Date of Encounter: 08/26/16 Time of Encounter: 10:35 - Assessment and plan (1) Coronary artery disease with stable angina pectoris Current Visit: Yes Status: Acute Assessment and plan: LHC: non-obstructive CAD, prior stent patent. TTE: EF 65%, normal wall motion. Continue home medications including asa, statin and betablocker Patient complaining of persistent headaches possibly from nitrates, will decrease imdur Qualifiers: Coronary Disease-Associated Artery/Lesion type: [place] artery [place] vs. transplanted heart: [place] heart Qualified Code(s): I25.118 - Atherosclerotic heart disease of [place] coronary artery with other forms of angina pectoris (2) COPD (chronic obstructive pulmonary disease) Current Visit: Yes Status: Chronic Assessment and plan: not noted to be acute exacerbation; continue PRN bronchodilators and supplemental O2 as needed; Qualifiers: COPD type: unspecified COPD Qualified Code(s): J44.9 - Chronic obstructive pulmonary disease, unspecified (3) HLD (hyperlipidemia) Current Visit: Yes Status: Chronic Assessment and plan: Chronic stable Qualifiers: Hyperlipidemia type: unspecified Qualified Code(s): E78.5 - Hyperlipidemia , unspecified (4) HTN (hypertension) Current Visit: Yes Status: Chronic Assessment and plan: BP well controlled; continue home meds Qualifiers: Hypertension type: essential hypertension Qualified Code(s): I10 - Essential (primary) hypertension (5) SPRING on CPAP Current Visit: Yes Status: Chronic (6) Obesity Current Visit: Yes Status: Chronic Qualifiers: Obesity type: due to excess calories Obesity severity: morbid Qualified Code(s): E66.01 - Morbid (severe) obesity due to excess calories (7) Tobacco abuse Current Visit: Yes Status: Chronic Assessment and plan: started nicotine patch Educated for 3 minutes on tobacco cessation - Subjective Interval history: 51 Y/O F with DM, CAD s/p PCI, HLD, HTN, SPRING on CPAP , Tobacco abuse She was hospitalized for management of chest pain, most likely stable angina Work up included a stress test which showed questionable areas of ischemia Patient is s/p LHC today , with single vessel disease, no intervention planned She is complaining of persistent headaches and nasal congestion She is otherwise stable - Constitutional Vitals: Temp Pulse Resp BP Pulse Ox 97.7 F 75 16 125/74 93 L 08/26/16 15:53 08/26/16 15:53 08/26/16 15:53 08/26/16 15:53 08/26/16 15:53 General appearance: Present: A&O X 3, no acute distress, obese, answers questions appropriately - Head Head exam: Present: atraumatic, normocephalic - Eye Eye exam: Present: PERRL, conjuntiva pink, sclera anicteric Pupils: Present: PERRL - Neck Neck exam general surgery: Present: supple, trachea midline. Absent: lymphadenopathy - Respiratory Respiratory exam: Present: CTAB. Absent: accessory muscle use, rales, rhonchi, wheezes - Cardiovascular Cardiovascular exam: Present: RRR, +S1, +S2. Absent: diastolic murmur, gallop, rubs, systolic murmur - GI/Abdominal GI/Abdominal exam: Present: normal bowel sounds, soft, no peritoneal signs. Absent: distended, tenderness - Extremities Exam Extremities exam: Present: warm, radial pulses palpable and symetrical. Absent : calf tenderness, cyanotic, pedal edema - Neurological Exam Neurological exam: Present: CN II-XII intact, oriented X3, no focal deficits. Absent: pronater drift, facial droop, speech deficit - Skin Skin exam: Present: dry, intact Internal Medicine: Result - Labs CBC & Chem 7: 08/25/16 00:48 08/25/16 00:48 - ABG Interpretation ABG results: PT/INR, D-dimer PT 11.1 Seconds (9.4-12.1) 08/24/16 14:50 Consult Discharge Plan - Plan Referrals: Huong Kitchen, TREADLE CUT OFF SAW OPERATOR [Primary Care Provider] -
[2016-08-26] MEDS ORDERED: Acetaminophen 325 MG TABLET PO ONE (16:11)
[2016-08-26] MEDS ORDERED: Isosorbide MONOnitrate (24 HR) 30 MG TAB.ER.24H PO SCH (16:12)
[2016-08-26] MEDS: Nicotine 14 MG PATCH.TD24 TD SCH (17:29)
[2016-08-26] MEDS: Loratadine/Pseudophed (12 HR) 1 EACH TABLET PO PRN (18:09)
[2016-08-26] MEDS: rOPINIRole 0.25 MG TABLET PO SCH (20:50)
[2016-08-27 05:01] LABS: Chol/HDL Ratio 3.5 (0-4.9)
[2016-08-27] MEDS: Ciprofloxacin OPTH Soln 2.5 ML BOTTLE RIGHT EYE SCH ×2 (06:18→12:02)
[2016-08-27] MEDS: Pregabalin 75 MG CAPSULE PO SCH (09:49)
[2016-08-27] MEDS: Aspirin 81 MG TAB.CHEW PO SCH (09:49)
[2016-08-27] MEDS: Losartan/HCTZ 50-12.5 TABLET PO SCH (09:49)
[2016-08-27] MEDS: Nicotine 14 MG PATCH.TD24 TD SCH (09:50)
[2016-08-27] MEDS: Insulin LISPRO 300 UNITS/3 ML VIAL SQ SCH ×2 (09:50→12:02)
[2016-08-27] MEDS: Loratadine/Pseudophed (12 HR) 1 EACH TABLET PO PRN (09:54)
[2016-08-27 11:26] VITALS: BP 114/72
--- NOTE | 2016-08-27 14:02 | Discharge Summary ---
Date of Encounter: 08/27/16 Time of Encounter: 11:40 - Discharge Diagnosis (1) Coronary artery disease with stable angina pectoris Priority: Primary Status: Acute Comments: LHC: non-obstructive CAD, prior stent patent. TTE: EF 65%, normal wall motion. Continue home medications including asa, statin and betablocker, Imdur added, decreased to 15mg daily due to persistent headaches Tobacco cessation encouraged, patient refuses NRT Follow up with PCP and Cardiology Qualifiers: Coronary Disease-Associated Artery/Lesion type: [place] artery [place] vs. transplanted heart: [place] heart Qualified Code(s): I25.118 - Atherosclerotic heart disease of [place] coronary artery with other forms of angina pectoris (2) COPD (chronic obstructive pulmonary disease) Priority: Secondary Status: Chronic Qualifiers: COPD type: unspecified COPD Qualified Code(s): J44.9 - Chronic obstructive pulmonary disease, unspecified (3) HLD (hyperlipidemia) Priority: Secondary Status: Chronic Qualifiers: Hyperlipidemia type: unspecified Qualified Code(s): E78.5 - Hyperlipidemia , unspecified (4) HTN (hypertension) Priority: Secondary Status: Chronic Qualifiers: Hypertension type: essential hypertension Qualified Code(s): I10 - Essential (primary) hypertension (5) SPRING on CPAP Priority: Secondary Status: Chronic (6) Obesity Priority: Secondary Status: Chronic Qualifiers: Obesity type: due to excess calories Obesity severity: morbid Qualified Code(s): E66.01 - Morbid (severe) obesity due to excess calories (7) Tobacco abuse Priority: Secondary Status: Chronic - Discharge Medications Prescriptions: Isosorbide MONOnitrate (24 HR) [Imdur] 15 mg PO DAILY #30 tab.er.24h Loratadine/Pseudoephedrine [Eql Allergy-Congestion 12H Tab] 1 each PO BID PRN # 6 tab.er.12h PRN Reason: Nasal Congestion Home Medications: Alprazolam [Xanax] 0.5 mg PO BID PRN 03/17/15 [History] Aspirin 81 mg PO QAM 03/17/15 [History] Atorvastatin [Lipitor] 80 mg PO QPM 03/17/15 [History] Insulin Glargine,Hum.rec.anlog [Lantus Solostar] 30 unit SQ HS 03/17/15 [History ] Metformin [Glucophage] 1,000 mg PO BID 03/17/15 [History] Metoprolol [Lopressor] 25 mg PO BID 03/17/15 [History] Pregabalin [Lyrica] 150 mg PO BID 03/17/15 [History] Citalopram [CeleXA] 20 mg PO QPM 06/06/15 [History] Hydrocodone/Acetaminophen [[place] 10-325 Tablet] 1 tab PO Q4-6H PRN 06/06/15 [ History] Lansoprazole [Prevacid] 30 mg PO DAILY 06/06/15 [History] Losartan/Hydrochlorothiazide [Hyzaar 50-12.5 Tablet] 1 tab PO QAM 06/06/15 [ History] Nitroglycerin 0.4 mg SL AD PRN 06/06/15 [History] Ropinirole [Requip] 0.25 mg PO HS 06/06/15 [History] Mometasone Furoate [Nasonex] 2 spray NS DAILY 11/09/15 [History] Ondansetron HCl [Zofran] 4 - 8 mg PO TID PRN 11/09/15 [History] Oxygen 2 l NS AD 11/09/15 [History] Albuterol Neb [AccuNeb] 0.63 mg IH Q4H PRN #25 units 01/23/16 [Rx] Isosorbide MONOnitrate (24 HR) [Imdur] 15 mg PO DAILY #30 tab.er.24h 08/27/16 [ Rx] Loratadine/Pseudoephedrine [Eql Allergy-Congestion 12H Tab] 1 each PO BID PRN # 6 tab.er.12h 08/27/16 [Rx] Allergies/Adverse Reactions: Allergies No Known Allergies Allergy (Verified 03/17/15 12:11) Procedures/tests Complete & Pending: Procedures Performed prior 72 hours Category Date Time Status CL Cardiac Catheterization [CL] Routine Sat Act Instructor 08/26/16 09:32 Completed NM cade perf SPECT multi [NM] Routine Exams 08/25/16 07:26 Taken ECG 12 lead ECG [ECG] AM 0600 Y 08/25/16 06:00 Ordered EV echocardiogram Routine Y 08/25/16 13:57 Completed SP pharm nuclear stress Routine Y 08/25/16 07:25 Completed Date of admission: 08/24/16 16:04 Primary care physician: Huong Kitchen CNP Consults: 08/25/16 13:57 Consult to Cardiology [CONS] Routine Comment: Consulting Provider: Jarvis Agustin Reason for Consult: Chest pain with abnormal stress test Call Completed: Yes 08/26/16 11:47 Consult to Cardiac Rehabilitation-Phase1 [CONS] Routine Comment: Reason for Consult: post op cath Call Completed: Yes Discharging clinician: Lazaro Abdi Anticipated date of discharge: 08/27/16 - Patient Status Disposition: Left Against Medical Advice Condition: Good Functional capacity at discharge: independent ambulation Overall status at discharge: patient is back to baseline - Discharge Instructions Follow Up With: Huong Kitchen CNP [Primary Care Provider] - 08/29/16 1:00 pm Nely Finley DO [Partnered Physician] - 09/17/16 9:20 am - Diet and Activity Activity: resume usual activities as tolerated Diet: low fat, low cholesterol, low salt diet Interval History: See below Hospital course: 51 Y/O F with DM, CAD s/p PCI, HLD, HTN, SRPING on CPAP , Tobacco abuse She was hospitalized for management of chest pain, most likely stable angina Work up included a stress test which showed questionable areas of ischemia, she then had LHC today , with single vessel disease, no intervention planned She has been started on Imdur for her stable angina She is seen at bedside today, with no new complains and in no form of distress She is stable for d/c home Plan of care discussed, verbalizes understanding Time spent discussing smoking cessation with patient: 3 to 10 minutes (4 minutes spent educating patient about tobacco cessation) - Time Spent with Patient Total time spent providing and/or coordinating discharge services: Less than 30 minutes - Constitutional Vitals: Temp Pulse Resp BP Pulse Ox 98.2 F 58 15 114/72 99 08/27/16 11:21 08/27/16 11:21 08/27/16 11:21 08/27/16 11:21 08/27/16 11:21 General appearance: Present: A&O X 3, no acute distress, obese, answers questions appropriately - Head Head exam: Present: atraumatic, normocephalic - Eye Eye exam: Present: PERRL, conjuntiva pink, sclera anicteric Pupils: Present: PERRL - Neck Neck exam general surgery: Present: supple, trachea midline. Absent: lymphadenopathy - Respiratory Respiratory exam: Present: CTAB. Absent: accessory muscle use, rales, rhonchi, wheezes - Cardiovascular Cardiovascular exam: Present: RRR, +S1, +S2. Absent: diastolic murmur, gallop, rubs, systolic murmur - GI/Abdominal GI/Abdominal exam: Present: normal bowel sounds, soft, no peritoneal signs. Absent: distended, tenderness - Extremities Exam Extremities exam: Present: warm, radial pulses palpable and symetrical. Absent : calf tenderness, cyanotic, pedal edema - Neurological Exam Neurological exam: Present: CN II-XII intact, oriented X3, no focal deficits. Absent: pronater drift, facial droop, speech deficit - Skin Skin exam: Present: dry
== END 2016-08-27 15:27 | disposition left against medical advice (07) ==
LOC: EMEROO 14:20 → 3BNU 14:20 → SUATTDRO 16:04 → 3BNU 16:45
PROVIDERS: ADMIT Internal Medicine; ATTEND Internal Medicine

== ENCOUNTER 2017-10-02 10:55 | Observation (INO) ==
[2017-10-02] MEDS ORDERED: Nitroglycerin 0.4 MG TAB.SUBL SL ONE (11:26)
[2017-10-02] MEDS ORDERED: Ondansetron 4 MG/2 ML VIAL IVP ONE (11:26)
[2017-10-02] MEDS ORDERED: Aspirin 81 MG TAB.CHEW PO ONE (11:26)
--- NOTE | 2017-10-02 11:39 | Emergency Department Note ---
START Narrative - START START: I examined this patient and my medical decision-making was reviewed with the COPPER TAPPER/PA/Advanced Practice Nurse/Resident Physician. I agree with the documented findings, disposition and treatment plan as described except to the extent set forth below. The patient and spoke with her and examined her she does have shortness of breath as well as chest pain and she does have a history of coronary disease with cardiac stent I did review her EKG showing normal sinus rhythm with a rate of 66 without acute ischemic change and the patient does have a cardiac workup initiated and will likely be admitted for further evaluation. She is here with her and grandson. No pleuritic aspect the pain and no radiation to the back 1042
[2017-10-02] MEDS ORDERED: Ipratropium/Albuterol Neb 3 ML IH ONE (11:42)
[2017-10-02 11:56] LABS: Hematocrit 36.1 % (35.3-44.9); Hemoglobin 11.9 g/dL (11.5-15.4); Immature Granulocytes % 0.4 % (0-4); Lymphocytes % 45.7 %; Mean Corpuscular Volume 90.9 fL (83.0-100.0); Mean Platelet Volume 9.4 fL (9.4-12.4); Platelet Count 188 K/mcL (140-400); Red Blood Count 3.97 M/mcL (3.82-4.97); Red Cell Distribution Width 12.5 % (11.5-14.5); Segmented Neutrophils % 44.5 %
[2017-10-02 11:57] LABS: Basophils % 0.3 %; Eosinophils # 0.2 K/mcL (0.0-0.6); Eosinophils % 2.8 %; Lymphocytes # 3.3 K/mcL (0.6-4.6); Monocytes # 0.5 K/mcL (0.0-1.3); Monocytes % 6.3 %; Neutrophils # 3.2 K/mcL (1.6-8.9)
[2017-10-02] MEDS ORDERED: Ipratropium/Albuterol Neb 3 ML ONE (11:57)
[2017-10-02 12:03] LABS: INR 0.9
[2017-10-02 12:12] LABS: Activated Partial Thrombo Time 31.4 Seconds (26.0-36.0)
[2017-10-02 12:17] LABS: Troponin I < 0.03 ng/mL (< 0.04)
--- NOTE | 2017-10-02 12:28 | Emergency Department Note ---
Disposition Clinical Impression: Chest pain Qualifiers: Chest pain type: chest pain on breathing Qualified Code(s): R07.1 - Chest pain on breathing Disposition: Admitted As Inpatient Condition: Fair General Adult HPI - General Chief complaint: ED Shortness of Breath/Dyspnea Stated complaint: CP/ADRIAN x2days Time Seen by Provider: 10/02/17 11:09 Source: patient Mode of arrival: ambulatory Limitations: no limitations Nursing Notes Reviewed: Yes Vital Signs Reviewed: Yes - History of Present Illness HPI Narrative: Patient is a 52-year-old female with a past medical history of CAD with stent placement over 3 years ago presenting to the emergency department for the complaint of chest pain that started 2 days ago. She states that the chest pain has come on gradually and she describes it as a left-sided pressure-like pain with radiation into her arms bilaterally associated with nausea and shortness of breath. She states nothing makes the pain better and nothing makes the pain worse. She is unsure if this is pain is similar to when she had stents placed in the past. She denies any recent cardiac workup. Patient states that she does have a history of COPD, however this does not feel like a COPD exacerbation to her. Pain Scale: 8 - Related Data Home Medications Medication Instructions Recorded Confirmed Aspirin 81 mg PO QAM 03/17/15 10/02/17 Atorvastatin [Lipitor] 80 mg PO QPM 03/17/15 10/02/17 Insulin Glargine,Hum.rec.anlog 35 unit SQ 03/17/15 10/02/17 [Lantus Solostar] Metformin [Glucophage] 1,000 mg PO BID 03/17/15 10/02/17 Metoprolol [Lopressor] 25 mg PO BID 03/17/15 10/02/17 Pregabalin [Lyrica] 150 mg PO TID 03/17/15 10/02/17 Lansoprazole [Prevacid] 30 mg PO DAILY 06/06/15 10/02/17 Losartan/Hydrochlorothiazide 1 tab PO QAM 06/06/15 10/02/17 [Hyzaar 50-12.5 Tablet] Nitroglycerin 0.4 mg SL AD PRN 06/06/15 10/02/17 Ropinirole [Requip] 0.5 mg PO HS 06/06/15 10/02/17 Mometasone Furoate [Nasonex] 2 spray NS DAILY 11/09/15 10/02/17 Ondansetron HCl [Zofran] 4 - 8 mg PO TID PRN 11/09/15 10/02/17 Oxygen 2 l NS AD 11/09/15 10/02/17 Ranitidine HCl [Heartburn Relief] 150 mg PO BID 03/17/17 10/02/17 Ergocalciferol (VITAMIN D2) 50,000 unit PO 2XW 10/02/17 10/02/17 [Vitamin D2] Fluticasone Propionate Nasal 1 spr NS DAILY 10/02/17 10/02/17 [Flonase] Previous Rx's Medication Instructions Recorded Albuterol Neb [AccuNeb] 0.63 mg IH Q4H PRN #25 units 01/23/16 Isosorbide MONOnitrate (24 HR) 15 mg PO DAILY #30 tab.er.24h 08/27/16 [Imdur] Ipratropium/Albuterol Neb [Duoneb] 3 ml IH [id number] PRN #30 03/20/17 Allergies Allergy/AdvReac Type Severity Reaction Status Date / Time No Known Allergies Allergy Verified 10/02/17 11:00 All systems ED: reviewed and negative except as stated. Review of Systems: As Per HPI Constitutional: Denies: fever, chills ENT ED: Denies: congestion Cardiovascular: Reports: chest pain, other (Patient states she felt swollen yesterday in her extremities.) Respiratory: Reports: cough, dyspnea, wheezes Gastrointestinal: Reports: nausea. Denies: abdominal pain, vomiting Genitourinary: Denies: urgency, dysuria Musculoskeletal: Denies: back pain, neck pain Neurological: Denies: headache, weakness Past Medical History - Past Medical History Attestation: Yes The following information was validated with the patient. Medical history: Reports: arthritis, COPD, coronary artery disease, diabetes, fibromyalgia, GERD, hyperlipidemia, hypertension, myocardial infarction, peripheral artery disease, other Surgical history: Reports: angioplasty/stent, appendectomy, cholecystectomy, hysterectomy (Total), other Psychiatric history: Reports: anxiety, depression PAN HELPER history: Reports: no PAN HELPER history - Social History Smoking Status: Current every day smoker Smokeless Tobacco Status: No Alcohol use: Reports: none Drug use: Reports: none Physical Exam CONSTITUTIONAL: Patient is sitting up in bed; A&O X 3, in no apparent distress HEAD: Normocephalic; atraumatic EYES: PERRL, no scleral icterus NOSE: The nose is normal in appearance without rhinorrhea NECK: No JVD or distended neck veins RESP: Normal chest excursion with respiration; breath sounds clear and equal bilaterally; no rhonchi, or rales. Patient has minimal wheezing bilaterally in the bases. CARD: Regular rhythm, without murmurs, rub or gallop ABD: Non-distended; non-tender, soft, without rigidity, rebound or guarding,no pulsatile mass CHEST: No pain with palpation SKIN: Normal for age and race; warm and dry without diaphoresis ; no apparent lesions EXTREMITIES: Pulses are 2 plus and equal times 4 extremities, no peripheral edema or calf muscle pain - General Limitations: no limitations General appearance: alert, in no apparent distress Course Course Narrative: Plan as a right now sort the patient up for cardiac chest pain which will include a chest x-ray, EKG, troponin and basic labs. Patient will be given an aspirin and nitroglycerin sublingual trial. Pulmonary embolism was considered however the patient is not having pleuritic chest pain she is not tachycardic has no history of blood clots and no other risk factors at this time. Due to patient's cardiac history she will be admitted to the hospital for further cardiac evaluation. I will also order the patient a breathing treatment she does have minimal wheezing in the bases with a history of COPD. - Reevaluation(s) Reevaluation #1: Patient's pain improved from 8/10 to a 7/10 after the nitroglycerin. She states that she feels her breathing has improved after the breathing treatment she still remained short of breath. Time: 12:38 Vital Signs Temperature 98.5 F 10/02/17 10:57 Pulse Rate 70 10/02/17 10:57 Respiratory Rate 16 10/02/17 10:57 Blood Pressure 163/92 10/02/17 10:57 O2 Sat by Pulse Oximetry 98 10/02/17 10:57 Temperature 98.0 F 10/02/17 18:00 Pulse Rate 63 10/02/17 18:00 Respiratory Rate 16 10/02/17 18:00 Blood Pressure 149/82 10/02/17 18:00 O2 Sat by Pulse Oximetry 98 10/02/17 18:00 Oxygen Delivery Oxygen Delivery Nasal Cannula Medical Decision Making - Medical Records Medical records reviewed: Yes I reviewed the patient's medical records. - Lab Data Lab results reviewed: Yes I reviewed the patient's lab results. Result diagrams: 10/02/17 11:46 10/02/17 11:46 Lab Results 10/02/17 10/02/17 10/02/17 Range/Units 11:46 11:46 11:46 WBC 7.1 (4.3-11.1) K/mcL RBC 3.97 (3.82-4.97) M/mcL Hgb 11.9 (11.5-15.4) g/dL Hct 36.1 (35.3-44.9) % MCV 90.9 (83.0-100.0) fL MCH 30.0 (28.0-33.3) pg MCHC 33.0 (31.6-35.5) g/dL RDW 12.5 (11.5-14.5) % Plt Count 188 (140-400) K/mcL MPV 9.4 (9.4-12.4) fL Immature Gran % 0.4 (0-4) % Seg Neutrophils % 44.5 % Lymphocytes % 45.7 % Monocytes % 6.3 % Eosinophils % 2.8 % Basophils % 0.3 % Neutrophils # 3.2 (1.6-8.9) K/mcL Lymphocytes # 3.3 (0.6-4.6) K/mcL Monocytes # 0.5 (0.0-1.3) K/mcL Eosinophils # 0.2 (0.0-0.6) K/mcL Basophils # 0.0 (0.0-0.2) K/mcL PT 10.0 (9.4-12.1) Seconds INR 0.9 APTT 31.4 (26.0-36.0) Seconds Sodium (136-145) mEq/L Potassium (3.5-5.1) mEq/L Chloride (98-107) mEq/L Carbon Dioxide (23-29) mEq/L BUN (6-20) mg/dL Creatinine (0.60-1.20) mg/dL Est GFR ( Amer) (> 60) Est GFR (Non-Af Amer) (> 60) BUN/Creatinine Ratio (6-26) Glucose (70-105) mg/dL Calculated Osmolality (280-300) Calcium (8.6-10.3) mg/dL Troponin I (< 0.04) ng/mL B-Natriuretic Peptide 317 H (Less than 100) pg/mL TSH (0.340-5.600) mcIU/mL Free T4 (0.70-2.00) ng/dl 10/02/17 Range/Units 11:46 WBC (4.3-11.1) K/mcL RBC (3.82-4.97) M/mcL Hgb (11.5-15.4) g/dL Hct (35.3-44.9) % MCV (83.0-100.0) fL MCH (28.0-33.3) pg MCHC (31.6-35.5) g/dL RDW (11.5-14.5) % Plt Count (140-400) K/mcL MPV (9.4-12.4) fL Immature Gran % (0-4) % Seg Neutrophils % % Lymphocytes % % Monocytes % % Eosinophils % % Basophils % % Neutrophils # (1.6-8.9) K/mcL Lymphocytes # (0.6-4.6) K/mcL Monocytes # (0.0-1.3) K/mcL Eosinophils # (0.0-0.6) K/mcL Basophils # (0.0-0.2) K/mcL PT (9.4-12.1) Seconds INR APTT (26.0-36.0) Seconds Sodium 144 (136-145) mEq/L Potassium 4.2 (3.5-5.1) mEq/L Chloride 112 H (98-107) mEq/L Carbon Dioxide 25 (23-29) mEq/L BUN 11 (6-20) mg/dL Creatinine 0.50 L (0.60-1.20) mg/dL Est GFR ( Amer) > 60 (> 60) Est GFR (Non-Af Amer) > 60 (> 60) BUN/Creatinine Ratio 22 (6-26) Glucose 142 H (70-105) mg/dL Calculated Osmolality 300 (280-300) Calcium 8.8 (8.6-10.3) mg/dL Troponin I < 0.03 (< 0.04) ng/mL B-Natriuretic Peptide (Less than 100) pg/mL TSH 1.408 (0.340-5.600) mcIU/mL Free T4 0.67 L (0.70-2.00) ng/dl - Radiology Data Radiology results reviewed: Yes I reviewed the patient's radiology results. Chest X-Ray 10/02/17 11:26 IMPRESSION: There is a 1.3 cm nodule in the right mid lung field. No other abnormality. CT could better evaluate lung parenchyma if indicated. D/ / 10/02/2017 12:06:11 Jasmina Forbes MD / [facility] Interpreting Provider: Jasmina Forbes MD - EKG Data EKG #1 EKG attestation: Yes I reviewed and interpreted this EKG. EKG results narrative: Patient's EKG done at 11:06 shows sinus rhythm at a rate of 66 bpm. Normal axis. LA 152, QRS 87, QT 387 QTC is 400 these are within normal limits. No signs of ST elevation, ST depression or Q waves present. No signs of ischemia at this time. This is unchanged from an EKG done on March 172016.
[2017-10-02 12:34] LABS: BUN/Creatinine Ratio 22 (6-26); Blood Urea Nitrogen 11 mg/dL (6-20); Calcium 8.8 mg/dL (8.6-10.3); Carbon Dioxide 25 mEq/L (23-29); Chloride 112 mEq/L (98-107); Glucose 142 mg/dL (70-105); Osmolality,Calculated 300 (280-300); Potassium 4.2 mEq/L (3.5-5.1); Sodium 144 mEq/L (136-145); eGFR For African Americans > 60 (> 60); eGFR For Non-African Americans > 60 (> 60)
[2017-10-02] MEDS ORDERED: Naloxone 0.4 MG/ML INJ IVP PRN (14:00)
[2017-10-02] MEDS ORDERED: Ipratropium/Albuterol Neb 3 ML IH PRN (14:04)
[2017-10-02] MEDS ORDERED: Nitroglycerin 0.4 MG TAB.SUBL SL PRN ×2 (14:04→14:36)
[2017-10-02] MEDS ORDERED: Albuterol Neb 0.63 MG/3 ML VIAL IH PRN (14:04)
[2017-10-02] MEDS ORDERED: Pseudoephedrine Oral Soln 30 MG/5 ML UDC PO PRN (14:13)
--- NOTE | 2017-10-02 14:27 | Internal Med History&Physical ---
Date of Encounter: 10/02/17 Time of Encounter: 12:45 Assessment and Plan (1) Chest pain Current visit: Yes Status: Acute Acute chest pain that began 2 days ago and presents as centralized chest pressure w/radiation to left arm, neck, and back. Reports intermittent right arm numbness for past two weeks. Hx of intermittent chest pain over past several weeks and previous NH w/stent placement x1. Last echocardiogram and stress test in 09/05. Echo showed LVEF of 65%, normal left ventricular size and systolic function, evidence of moderate diastolic dysfunction of the left ventricle, normal right ventricular size and function, no significant valvular dysfunction, and no pulmonary hypertension. Stress test showed technically challenging study with suboptimal imaging with 2 separate defects in which ischemia cannot be ruled out. Pharmacologic ECG negative for ischemia and gated EF = 64%. Initial troponin <0.03. Trend x2. Echocardiogram ordered. Nothing by mouth at midnight for a.m. nuclear stress test. Continuous cardiac telemetry. Aspirin. Nitroglycerin when necessary. Lipitor 80 mg now continuation of 80 mg at bedtime. Consider cardiology consult troponins, echocardiogram, and/or stress test results abnormal. Patient discussed with Dr. Cano who agrees w/plan of care. Pt. is high risk for further morbidity and cardiac event based on current sx, hx of previous NH and stent placement, hx ; and risk factors of CAD, HTN, HLD, DM, PAD, previous NH, and current tobacco abuse. Observation. Qualifiers: Chest pain type: other chest pain Qualified Code(s): R07.89 - Other chest pain; R07.8 - Other chest pain (2) Acute exacerbation of CHF (congestive heart failure) Current visit: Yes Status: Acute Acute exacerbation of CHF. No hx of CHF, however pt. reports two-week hx of SOB , weight gain, and bilateral pedal edema. BNP 317 on admission. Pt. takes Losartan/HCTZ. Will hold this and administer lasix 20 mg IVP BID. Continue pts. Lopressor and Imdur. Monitor I&O and daily weight. Echocardiogram. 1.5L daily fluid restriction. Continuous telemetry. Supplemental O2 w/titration and SpO2 monitoring. Qualifiers: Heart failure type: unspecified Qualified Code(s): I50.9 - Heart failure, unspecified (3) Cough Current visit: Yes Status: Acute Acute cough pt. reports she's had for 1-2 weeks. Mucinex ordered. (4) SOB (shortness of breath) Current visit: Yes Status: Acute Acute SOB for the past two weeks most likely r/t pts. CHF exacerbation. Lasix 20 mg IVP BID ordered. 1.5L daily fluid restriction. Supplemental O2 w/ titration and SpO2 monitoring. Continue pts. DuoNebs. Mucinex for cough. (5) Tobacco abuse counseling Current visit: Yes Status: Acute Pt. counseled >10 minutes regarding the importance of smoking cessation on her health, current chest pain sx, and long-term prognosis. Pt. declined nicotine patch while inpatient. (6) HTN (hypertension) Current visit: Yes Status: Chronic Hx of chronic HTN. Monitor pt. and VS. Hold lisinopril/HCTZ d/t pt. receiving lasix IVP 20 mg BID for CHF exacerbation. Continue pts. Lopressor and Imdur. Qualifiers: Hypertension type: essential hypertension Qualified Code(s): I10 - Essential (primary) hypertension (7) HLD (hyperlipidemia) Current visit: Yes Status: Chronic Hx of chronic HLD. Lipid panel in a.m. labs. Continue pts. Lipitor. Qualifiers: Hyperlipidemia type: pure hypercholesterolemia Qualified Code(s): E78.00 - Pure hypercholesterolemia, unspecified; E78.0 - Pure hypercholesterolemia (8) CAD (coronary artery disease) Current visit: Yes Status: Chronic Hx of chronic CAD w/previous NH and stent placement x1. Continuous cardiac telemetry. Continue pts. Aspirin, Lipitor, Lopressor, and Imdur. Qualifiers: Coronary Disease-Associated Artery/Lesion type: [place] artery [place] vs. transplanted heart: [place] heart Associated angina: with unspecified angina Qualified Code(s): I25.119 - Atherosclerotic heart disease of [place] coronary artery with unspecified angina pectoris (9) COPD (chronic obstructive pulmonary disease) Current visit: Yes Status: Chronic Hx of chronic COPD. Stable. Pt. reports smoking 1/2 to 1 PPD. Supplemental O2 w/ titration and SpO2 monitoring. Continue pts. DuoNebs and inhalers. Qualifiers: COPD type: unspecified COPD Qualified Code(s): J44.9 - Chronic obstructive pulmonary disease, unspecified (10) Diabetes Current visit: Yes Status: Chronic Hx of chronic diabetes controlled by oral medications and insulin. Continue pts. HS insulin and hold Metformin. Add low-dose correction sliding scale insulin w/hypoglycemia protocol. BG checks ACHS. A1c in a.m. labs. Qualifiers: Diabetes mellitus type: type 2 Diabetes mellitus [facility] insulin use: with terminal carman use Diabetes mellitus complication status: with unspecified complications Qualified Code(s): E11.8 - Type 2 diabetes mellitus with unspecified complications; Z79.4 - [facility] (current) use of insulin; Z79.4 - [facility] (current) use of insulin; Z79.4 - [facility] (current) use of insulin; Z79.4 - [facility] (current) use of insulin (11) DVT prophylaxis Current visit: Yes Status: Acute Heparin 5,000 units SQ Q8 for DVT prophylaxis. Monitor pt. for signs of bleeding. Internal Medicine - H&P: HPI Chief complaint: Chest pain/SOB Admitted From: Emergency Dept Plans for Post Hospital Care: Home History of present illness: Ms. Enriquez is a 52 year old female w/PMH of arthritis, COPD, CAD, diabetes controlled with oral medications and insulin, fibromyalgia, GERD, HLD, HTN, NH approximately 3 years ago, and PAD presents from the ED with chief complaint of chest pain that began 2 days ago and presented as centralized pressure in her chest with radiation to her left arm, neck, and back. Patient also reports right arm numbness over the past 2 weeks. Patient states chest pressure has been intermittent over several weeks w/no alleviating or aggravating factors. Reports SOB and increase in pedal edema over two weeks. Describes pain as similar to when she had stent placed previously. Pt. also reports chest/head congestion and cough. Pt. to posterior descending illness, fever, chills, nausea , vomiting, changes in vision, headache, palpitations, abdominal pain, diarrhea , constipation, dizziness, lightheadedness, pre-syncope, or syncope. Past Med Surg Social Fam HX - Past Medical History Source: patient, old records reviewed, obtained from family Medical history: arthritis, COPD, coronary artery disease, diabetes, fibromyalgia, GERD, hyperlipidemia, hypertension, myocardial infarction ( Approimately 3 years ago according to pt. ), peripheral artery disease, other Psychiatric history: anxiety, depression - Past Surgical History Surgical History: angioplasty/stent (x1), appendectomy, cholecystectomy, hysterectomy (Total), other - Social History Smoking Status: Current every day smoker Packs per day: 1/2 - 1 PPD Smokeless Tobacco Status: No Alcohol use: none Drug use: none Occupational status: employed Current living situation: Home, With Family Activity Level: Independent ambulation Recent Out of Country Travel Within the Last 8 Weeks: No Exposure or Possible Exposure to Illness During Travel: No - Family History Father Race: Family Member Ethnicity: Non- Living Status: Age at : 74 Cause of : Lung cancer Hx Family Cancer: Yes (Lung) Brother Race: Family Member Ethnicity: Non- Living Status: Still Living Hx Family Cardiac Disorders: Yes (TIAs, CVA, CABG) Mother Adopted: No Race: Family Member Ethnicity: Non- Living Status: Age at : 64 Cause of : NH Hx Family Cardiac Disorders: Yes (HD, HTN, HLD, NH, Stents x11) Hx Family Endocrine Disorder: Yes (DM) Internal Medicine - H&P: Meds Aspirin 81 mg PO QAM 03/17/15 [History] Atorvastatin [Lipitor] 80 mg PO QPM 03/17/15 [History] Insulin Glargine,Hum.rec.anlog [Lantus Solostar] 35 unit SQ HS 03/17/15 [History ] Metformin [Glucophage] 1,000 mg PO BID 03/17/15 [History] Metoprolol [Lopressor] 25 mg PO BID 03/17/15 [History] Pregabalin [Lyrica] 150 mg PO TID 03/17/15 [History] Lansoprazole [Prevacid] 30 mg PO DAILY 06/06/15 [History] Losartan/Hydrochlorothiazide [Hyzaar 50-12.5 Tablet] 1 tab PO QAM 06/06/15 [ History] Nitroglycerin 0.4 mg SL AD PRN 06/06/15 [History] Ropinirole [Requip] 0.5 mg PO HS 06/06/15 [History] Mometasone Furoate [Nasonex] 2 spray NS DAILY 11/09/15 [History] Ondansetron HCl [Zofran] 4 - 8 mg PO TID PRN 11/09/15 [History] Oxygen 2 l NS AD 11/09/15 [History] Albuterol Neb [AccuNeb] 0.63 mg IH Q4H PRN #25 units 01/23/16 [Rx] Isosorbide MONOnitrate (24 HR) [Imdur] 15 mg PO DAILY #30 tab.er.24h 08/27/16 [ Rx] Ranitidine HCl [Heartburn Relief] 150 mg PO BID 03/17/17 [History] Ipratropium/Albuterol Neb [Duoneb] 3 ml IH [id number] PRN #30 03/20/17 [Rx] Ergocalciferol (VITAMIN D2) [Vitamin D2] 50,000 unit PO 2XW 10/02/17 [History] Fluticasone Propionate Nasal [Flonase] 1 spr NS DAILY 10/02/17 [History] 3 Allergy/AdvReac Type Severity Reaction Status Date / Time No Known Allergies Allergy Verified 10/02/17 11:00 All Systems PM: A 10-system review of systems was performed and is negative for pertinent findings except as documented above in the HPI. - Constitutional Constitutional: weight gain (Over past two weeks), no chills, no fever(s), no night sweats - EENT Eyes: no change in vision, no discharge, no pain, no photophobia Ears: no ear discharge, no ear pain, no tinnitus Nose, mouth and throat: no dysphagia, no nasal discharge, no neck pain, no sore throat - Breasts Breasts: as per HPI - Cardiovascular Cardiovascular ROS IM: as per HPI, chest pain (Centralized pressure in chest), dyspnea, dyspnea on exertion, edema (Bilateral pedal edema over two weeks), no diaphoresis, no lightheadedness, no palpitations, no syncope - Respiratory Respiratory: as per HPI, cough, dyspnea on exertion, chest congestion, no dyspnea, no wheezing, no excessive phlegm production - Gastrointestinal Gastrointestinal: no abdominal pain, no diarrhea, no hematemesis, no hematochezia, no melena, no nausea, no vomiting - Genitourinary Genitourinary: no change in urinary stream, no dysuria, no flank pain, no hematuria Menstruation: as per HPI, post hysterectomy - Musculoskeletal Musculoskeletal ROS IM: no numbness, no tingling - Integumentary Integumentary IM: no rash, no unusual bruising - Neurological Neurological ROS: no confusion, no convulsions, no focal weakness, no numbness, no tingling, no tremor(s) - Psychiatric Psychiatric: as per HPI, anxiety, depression - Endocrine Endocrine IM: as per HPI - Hematologic/Lymphatic Hematologic/Lymphatic: no easy bruising - Allergic/Immunologic Allergic/Immunologic: as per HPI - Constitutional Vitals: Temp Pulse Resp BP Pulse Ox 98.5 F 65 18 145/64 98 10/02/17 10:57 10/02/17 13:09 10/02/17 14:02 10/02/17 14:02 10/02/17 13:09 Internal Med - H&P Results - Labs CBC & Chem 7: 10/02/17 11:46 10/02/17 11:46 - EKG Data EKG shows normal: sinus rhythm - EKG Data Prior EKG available for review: yes When compared to previous EKG: there is no significant change Interpretation IM: normal EKG EKG comments: 10/02/17 14:41 EKG dated 03/17/17 shows sinus rhythm. EKG dated 10/02/17 shows sinus rhythm and normal ECG. - Diagnostic Studies Chest x-ray Additional comments: Impressions Chest X-Ray 10/02/17 11:26 IMPRESSION: There is a 1.3 cm nodule in the right mid lung field. No other abnormality. CT could better evaluate lung parenchyma if indicated. D/ / 10/02/2017 12:06:11 Jasmina Forbes MD / [facility] Interpreting Provider: Jasmina Forbes MD
[2017-10-02] MEDS ORDERED: Dextrose Gel 15 GM/37.5 ML TUBE PO PRN ×2 (14:35)
[2017-10-02] MEDS ORDERED: D5% in Water 1,000 ML IVC PRN (14:35)
[2017-10-02] MEDS ORDERED: *HR* Dextrose 50 % in Water (Syg) 50 ML SYRINGE IVP PRN (14:35)
[2017-10-02] MEDS: Pantoprazole 40 MG VIAL IVP SCH (15:07)
[2017-10-02] MEDS: Furosemide 20 MG/2 ML VIAL IVP SCH ×2 (15:07→21:32)
[2017-10-02] MEDS: *HR* HYDROcodone/Acet 5/325 mg TABLET PO PRN ×2 (15:12→21:44)
[2017-10-02 16:28] LABS: Thyroid Stimulating Hormone 1.408 mcIU/mL (0.340-5.600)
[2017-10-02] MEDS: Pregabalin 75 MG CAPSULE PO SCH ×2 (17:00→21:31)
[2017-10-02] MEDS: Insulin DETEMIR 100 UNIT/ML X5UNITS SQ SCH (21:31)
[2017-10-02] MEDS: rOPINIRole 0.25 MG TABLET PO SCH (21:31)
[2017-10-02] MEDS: *HR* Heparin 5,000 UNIT/ML VIAL SQ SCH (21:31)
[2017-10-03 00:39] LABS: Basophils % 0.2 %; Eosinophils # 0.3 K/mcL (0.0-0.6); Eosinophils % 3.6 %; Hematocrit 35.4 % (35.3-44.9); Hemoglobin 11.6 g/dL (11.5-15.4); Immature Granulocytes % 0.5 % (0-4); Lymphocytes # 3.9 K/mcL (0.6-4.6); Lymphocytes % 45.9 %; Mean Corpuscular HGB Conc 32.8 g/dL (31.6-35.5); Mean Corpuscular Hemoglobin 30.1 pg (28.0-33.3); Mean Corpuscular Volume 91.9 fL (83.0-100.0); Mean Platelet Volume 9.4 fL (9.4-12.4); Monocytes # 0.5 K/mcL (0.0-1.3); Monocytes % 5.8 %; Neutrophils # 3.7 K/mcL (1.6-8.9); Platelet Count 171 K/mcL (140-400); Red Blood Count 3.85 M/mcL (3.82-4.97); Red Cell Distribution Width 12.8 % (11.5-14.5)
[2017-10-03 01:05] LABS: Alanine Aminotransferase 20 Units/L (7-52); Albumin 3.6 g/dL (3.5-5.7); Albumin/Globulin Ratio 1.5 (1.1-2.2); Alkaline Phosphatase 69 Units/L (34-104); Aspartate Amino Transferase 12 Units/L (13-39); BUN/Creatinine Ratio 23 (6-26); Bilirubin,Total 0.3 mg/dL (0.3-1.0); Blood Urea Nitrogen 13 mg/dL (6-20); Calcium 9.1 mg/dL (8.6-10.3); Carbon Dioxide 27 mEq/L (23-29); Chloride 108 mEq/L (98-107); Chol/HDL Ratio 4.5 (0-4.9); Cholesterol 180 mg/dL (< 200); Globulin 2.4 g/dL (2.4-3.5); Glucose 119 mg/dL (70-105); HDL Cholesterol 40 mg/dL (40-59); LDL Cholesterol,Calculated 113 mg/dL (0-99); Magnesium 1.9 mg/dL (1.6-2.6); Osmolality,Calculated 295 (280-300); Potassium 3.8 mEq/L (3.5-5.1); Sodium 142 mEq/L (136-145); Triglycerides 137 mg/dL (< 150); eGFR For African Americans > 60 (> 60); eGFR For Non-African Americans > 60 (> 60)
[2017-10-03] MEDS ORDERED: OXYCODONE Oral CONC 10 MG/0.5 ML ORAL.SYG SL PRN (02:02)
[2017-10-03] MEDS ORDERED: Regadenoson 0.4 MG/5 ML SYRINGE IVP ONE (06:01)
[2017-10-03] MEDS: Acetaminophen 325 MG TABLET PO PRN ×2 (06:37→15:56)
[2017-10-03] MEDS: *HR* Heparin 5,000 UNIT/ML VIAL SQ SCH ×3 (06:37→22:33)
[2017-10-03] MEDS ORDERED: NON-FORMULARY MEDICATION 1 EACH EACH (Mometasone Furoate [Nasonex] 2 SPRAY) NS SCH (09:00)
[2017-10-03] MEDS: Isosorbide MONOnitrate (24 HR) 30 MG TAB.ER.24H PO SCH (10:41)
[2017-10-03] MEDS: Pregabalin 75 MG CAPSULE PO SCH ×3 (10:41→22:33)
[2017-10-03] MEDS: Cholecalciferol (D-3) 1,000 UNIT TABLET PO SCH (10:42)
[2017-10-03] MEDS: Aspirin 81 MG TAB.CHEW PO SCH (10:42)
[2017-10-03] MEDS: Pantoprazole 40 MG VIAL IVP SCH (10:42)
[2017-10-03] MEDS: Furosemide 20 MG/2 ML VIAL IVP SCH ×2 (10:42→17:59)
[2017-10-03] MEDS: *HR* HYDROcodone/Acet 5/325 mg TABLET PO PRN ×2 (10:53→19:11)
[2017-10-03] MEDS: Fluticasone Propionate Nasal 50 MCG/SPRAY BOTTLE NS SCH ×2 (10:58→15:56)
--- NOTE | 2017-10-03 11:18 | Internal Med Progress Note ---
Date of Encounter: 10/03/17 Time of Encounter: 11:16 - Assessment and plan (1) Acute exacerbation of CHF (congestive heart failure) Current Visit: Yes Status: Acute Assessment and plan: 1 chest pain that began 2 days ago presented with centralized chest pressure radiation left arm neck and back. Reported intermittent right arm numbness or past 2 weeks. Previous MS with stent placement 1. Last echo EF 65% and stress test in 2017. Underwent nonexercise nuclear stress which was negative for ischemia or infarct. Echo basically unchanged from previous. Patient continues to complain of abdominal fullness lower extremity with slight pedal edema. Weight unchanged from previous day. No I/O have been documented. We will place order for strict I/O Patient was on hydrochlorothiazide at home we will hold this and continue with 20 of Lasix twice a day IV Oxygen as needed Consult to cardiology I did speak with Dr. Wade who will see the patient in the a.m. Qualifiers: Heart failure type: unspecified Qualified Code(s): I50.9 - Heart failure, unspecified (2) Chest pain Current Visit: Yes Status: Acute Qualifiers: Chest pain type: other chest pain Qualified Code(s): R07.89 - Other chest pain; R07.8 - Other chest pain (3) SOB (shortness of breath) Current Visit: Yes Status: Acute Assessment and plan: Has been experiencing increasing shortness of breath and past 2 weeks most likely related to CHF exacerbation. Patient will be diuresed with Lasix 20 mg IV twice a day she is on a fluid restriction continue with oxygen (4) Tobacco abuse counseling Current Visit: Yes Status: Acute (5) CAD (coronary artery disease) Current Visit: Yes Status: Chronic Assessment and plan: Patient did have a stent placedHistory of CAD with stent placement continue with aspirin Lipitor Lopressor and Imdur Qualifiers: Coronary Disease-Associated Artery/Lesion type: [place] artery [place] vs. transplanted heart: [place] heart Associated angina: with unspecified angina Qualified Code(s): I25.119 - Atherosclerotic heart disease of [place] coronary artery with unspecified angina pectoris (6) COPD (chronic obstructive pulmonary disease) Current Visit: Yes Status: Chronic Assessment and plan: 1 presently stable encourage patient to stop smoking she half a pack a day. 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 watermaster use Diabetes mellitus complication status: with unspecified complications Qualified Code(s): E11.8 - Type 2 diabetes mellitus with unspecified complications; Z79.4 - detention (current) use of insulin; 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; Z79.4 - detention (current) use of insulin; Z79.4 - detention (current) use of insulin (8) HTN (hypertension) Current Visit: Yes Status: Chronic Assessment and plan: Holding losartan/hydrochlorothiazide receiving Lasix IV due to CHF exacerbation continue with Lopressor and Imdur Qualifiers: Hypertension type: essential hypertension Qualified Code(s): I10 - Essential (primary) hypertension (9) DVT prophylaxis Current Visit: Yes Status: Acute Assessment and plan: Heparin subcutaneous - Time Spent With Patient less than 15 minutes - Subjective Interval history: patient seen and examined at bedside, complains of intermittent chest pain. Also complains of nasal congestion - Constitutional Vitals: Temp Pulse Resp BP Pulse Ox 98.8 F 64 16 152/83 96 10/03/17 10:30 10/03/17 10:30 10/03/17 10:30 10/03/17 10:30 10/03/17 10:30 General appearance: Present: A&O X 3 - Head Head exam: Present: atraumatic, normocephalic - Eye Eye exam: Present: PERRL, conjuntiva pink, sclera anicteric Pupils: Present: PERRL - Neck Neck exam general surgery: Present: supple, trachea midline. Absent: lymphadenopathy - Respiratory Respiratory exam: Present: CTAB. Absent: accessory muscle use, rales, rhonchi, wheezes - Cardiovascular Cardiovascular exam: Present: RRR, +S1, +S2. Absent: diastolic murmur, gallop, rubs, systolic murmur - GI/Abdominal GI/Abdominal exam: Present: distended, normal bowel sounds, soft, no peritoneal signs. Absent: tenderness - Extremities Exam Extremities exam: Present: warm, radial pulses palpable and symmetrical. Absent : calf tenderness, cyanotic, pedal edema - Neurological Exam Neurological exam: Present: CN II-XII intact, oriented X3, no focal deficits. Absent: pronater drift, facial droop, speech deficit - Skin Skin exam: Present: dry, intact Internal Medicine: Result - Labs CBC & Chem 7: 10/03/17 00:32 10/03/17 00:32 Labs: Short CBC 10/03/17 Range/Units 00:32 WBC 8.5 (4.3-11.1) K/mcL Hgb 11.6 (11.5-15.4) g/dL Hct 35.4 (35.3-44.9) % Plt Count 171 (140-400) K/mcL Neutrophils # 3.7 (1.6-8.9) K/mcL BMP 10/03/17 00:32 Sodium 142 Potassium 3.8 Chloride 108 H Carbon Dioxide 27 BUN 13 Creatinine 0.56 L Glucose 119 H Calcium 9.1 Cardiac Enzymes 10/02/17 10/03/17 Range/Units 17:59 00:32 Troponin I < 0.03 < 0.03 (< 0.04) ng/mL Liver Function 10/03/17 Range/Units 00:32 Total Bilirubin 0.3 (0.3-1.0) mg/dL AST 12 L (13-39) Units/L ALT 20 (7-52) Units/L Alkaline Phosphatase 69 (34-104) Units/L Albumin 3.6 (3.5-5.7) g/dL - ABG Interpretation ABG results: PT/INR, D-dimer PT 10.0 Seconds (9.4-12.1) 10/02/17 11:46 Consult Discharge Plan - Plan Referrals: Huong Kitchen, SHADOW GRAPH WEIGHT OPERATOR [Primary Care Provider] -
[2017-10-03] MEDS: Nicotine 14 MG PATCH.TD24 TD SCH (15:56)
[2017-10-03] MEDS: Loratadine 10 MG TABLET PO SCH (17:59)
[2017-10-03] MEDS: Insulin DETEMIR 100 UNIT/ML X5UNITS SQ SCH (22:33)
[2017-10-03] MEDS: rOPINIRole 0.25 MG TABLET PO SCH (22:33)
--- NOTE | 2017-10-03 22:40 | Cardiology Consult Note ---
Date of Encounter: 10/03/17 Time of Encounter: 22:38 Assessment and Plan (1) Acute exacerbation of CHF (congestive heart failure) Current Visit: Yes Status: Acute Preserved ejection fraction on echocardiogram with no major valvular abnormalities as well as a negative stress test with no reversible ischemia. Gentle diuresis with improved symptoms and currently euvolemic on exam. Patient will adhere to a strict diet including a low sodium diet and fluid restriction. She will follow-up with her primary care physician as an outpatient. Qualifiers: Heart failure type: unspecified Qualified Code(s): I50.9 - Heart failure, unspecified Discussion w patient/family: The assessment and plan as outlined above was discussed with the patient and/or family members who expressed understanding and agreement. All questions were answered. Thank you for involving us in the care of your patient. Please call with any questions. History of Present Illness Consult date: 10/03/17 Consult reason: CHF Chief complaint: SOB and weight gain History of present illness: Ms. Enriquez is a 52 year old female with history of hypertension, hyperlipidemia , diabetes, COPD active smoker, coronary artery disease status post PCI to RCA with last left heart catheter August 2016 showing a patent stent in the RCA territory. The stress test was obtained today showing no reversible ischemia and a preserved ejection fraction of 70% confirmed also on echocardiogram. Initial presentation of shortness of breath weight gain and orthopnea has improved with gentle diuresis at this time. Her troponins are negative 2 and BNP was 317. She may benefit from low dose technician terminal and repeater diuretic. We discussed this option however I also advised her of dietary restrictions with a low-salt diet and fluid restriction instead of a long-term diuretic. She seems more interested in this option and I have encouraged her to seek a dietary consult. Past Med Surg Social Fam HX - Past Medical History Medical history: arthritis, COPD, coronary artery disease, diabetes, fibromyalgia, GERD, hyperlipidemia, hypertension, myocardial infarction, peripheral artery disease, other Psychiatric history: anxiety, depression - Past Surgical History Surgical History: angioplasty/stent, appendectomy, cholecystectomy, hysterectomy (Total), other - Social History Smoking Status: Current every day smoker Packs per day: 1/2 - 1 PPD Smokeless Tobacco Status: No Alcohol use: none Drug use: none - Family History Father Race: Family Member Ethnicity: Non- Living Status: Age at : 74 Cause of : Lung cancer Hx Family Cancer: Yes (Lung) Brother Race: Family Member Ethnicity: Non- Living Status: Still Living Hx Family Cardiac Disorders: Yes (TIAs, CVA, CABG) Mother Adopted: No Race: Family Member Ethnicity: Non- Living Status: Age at : 64 Cause of : [place] Hx Family Cardiac Disorders: Yes (HD, HTN, HLD, [place], Stents x11) Hx Family Endocrine Disorder: Yes (DM) Medications and Allergies Aspirin 81 mg PO QAM 03/17/15 [History] Atorvastatin [Lipitor] 80 mg PO QPM 03/17/15 [History] Insulin Glargine,Hum.rec.anlog [Lantus Solostar] 35 unit SQ HS 03/17/15 [History ] Metformin [Glucophage] 1,000 mg PO BID 03/17/15 [History] Metoprolol [Lopressor] 25 mg PO BID 03/17/15 [History] Pregabalin [Lyrica] 150 mg PO TID 03/17/15 [History] Lansoprazole [Prevacid] 30 mg PO DAILY 06/06/15 [History] Losartan/Hydrochlorothiazide [Hyzaar 50-12.5 Tablet] 1 tab PO QAM 06/06/15 [ History] Nitroglycerin 0.4 mg SL AD PRN 06/06/15 [History] Ropinirole [Requip] 0.5 mg PO HS 06/06/15 [History] Mometasone Furoate [Nasonex] 2 spray NS DAILY 11/09/15 [History] Ondansetron HCl [Zofran] 4 - 8 mg PO TID PRN 11/09/15 [History] Oxygen 2 l NS AD 11/09/15 [History] Albuterol Neb [AccuNeb] 0.63 mg IH Q4H PRN #25 units 01/23/16 [Rx] Isosorbide MONOnitrate (24 HR) [Imdur] 15 mg PO DAILY #30 tab.er.24h 08/27/16 [ Rx] Ranitidine HCl [Heartburn Relief] 150 mg PO BID 03/17/17 [History] Ipratropium/Albuterol Neb [Duoneb] 3 ml IH [id number] PRN #30 03/20/17 [Rx] Ergocalciferol (VITAMIN D2) [Vitamin D2] 50,000 unit PO 2XW 10/02/17 [History] Fluticasone Propionate Nasal [Flonase] 1 spr NS DAILY 10/02/17 [History] 3 Allergy/AdvReac Type Severity Reaction Status Date / Time No Known Allergies Allergy Verified 10/02/17 11:00 All Systems Review: The remainder of the systems were reviewed and are negative Physical Examination Vital Signs, Last 4 Hours Temp Pulse Resp BP Pulse Ox 10/03/17 19:10 98.8 F 72 16 124/72 94 General: Conversant, No Apparent Distress HEENT: Atraumatic, Normocephaly, Mucus Membranes Moist Neck: No JVD, Normal carotid pulses Cardiac: Reg Rate and Rhythm, Normal S1 and S2, No Murmur Lungs: Normal Breath Sounds, No Wheeze, Rales, Rhonchi Neuro: Alert and responsive, No focal deficits noted Abdomen: Soft, Non-Tender Skin: No rashes noted on visualized skin Musculoskeletal: No Chest Wall Tenderness Extremities: No Clubbing, No Cyanosis, No Edema, Normal Pulses Results 10/03/17 00:32 10/03/17 00:32 Lab Results 10/03/17 10/03/17 10/03/17 00:32 00:32 00:32 WBC 8.5 Hgb 11.6 Hct 35.4 Plt Count 171 Sodium 142 Potassium 3.8 Chloride 108 H Carbon Dioxide 27 BUN 13 Creatinine 0.56 L Glucose 119 H Calcium 9.1 Magnesium 1.9 Total Bilirubin 0.3 AST 12 L ALT 20 Alkaline Phosphatase 69 Troponin I < 0.03 Consult Discharge Plan - Plan Referrals: Huong Kitchen CNP [Primary Care Provider] -
[2017-10-04 05:55] LABS: Basophils % 0.4 %; Eosinophils # 0.3 K/mcL (0.0-0.6); Eosinophils % 4.1 %; Hematocrit 37.8 % (35.3-44.9); Hemoglobin 12.2 g/dL (11.5-15.4); Immature Granulocytes % 0.7 % (0-4); Lymphocytes # 3.3 K/mcL (0.6-4.6); Mean Corpuscular HGB Conc 32.3 g/dL (31.6-35.5); Mean Corpuscular Hemoglobin 29.5 pg (28.0-33.3); Mean Corpuscular Volume 91.5 fL (83.0-100.0); Mean Platelet Volume 10.1 fL (9.4-12.4); Monocytes # 0.6 K/mcL (0.0-1.3); Monocytes % 7.3 %; Neutrophils # 3.3 K/mcL (1.6-8.9); Nucleated Red Blood Cells 0.3 /100 WBC (0); Platelet Count 174 K/mcL (140-400); Red Blood Count 4.13 M/mcL (3.82-4.97); Red Cell Distribution Width 12.6 % (11.5-14.5); Segmented Neutrophils % 43.5 %
[2017-10-04 06:21] LABS: Alanine Aminotransferase 18 Units/L (7-52); Albumin 3.4 g/dL (3.5-5.7); Albumin/Globulin Ratio 1.5 (1.1-2.2); Alkaline Phosphatase 71 Units/L (34-104); Aspartate Amino Transferase 11 Units/L (13-39); BUN/Creatinine Ratio 32 (6-26); Bilirubin,Total 0.4 mg/dL (0.3-1.0); Blood Urea Nitrogen 19 mg/dL (6-20); Carbon Dioxide 28 mEq/L (23-29); Chloride 108 mEq/L (98-107); Globulin 2.3 g/dL (2.4-3.5); Glucose 132 mg/dL (70-105); Osmolality,Calculated 296 (280-300); Potassium 3.9 mEq/L (3.5-5.1); Sodium 141 mEq/L (136-145); Total Protein 5.7 g/dL (6.4-8.9); eGFR For African Americans > 60 (> 60); eGFR For Non-African Americans > 60 (> 60)
[2017-10-04] MEDS: *HR* Heparin 5,000 UNIT/ML VIAL SQ SCH (06:43)
[2017-10-04] MEDS: Loratadine 10 MG TABLET PO SCH (07:49)
[2017-10-04] MEDS: Aspirin 81 MG TAB.CHEW PO SCH (07:49)
[2017-10-04] MEDS: Pantoprazole 40 MG VIAL IVP SCH (07:49)
[2017-10-04] MEDS: Furosemide 20 MG/2 ML VIAL IVP SCH (07:49)
[2017-10-04] MEDS: Nicotine 14 MG PATCH.TD24 TD SCH (07:49)
[2017-10-04] MEDS: Isosorbide MONOnitrate (24 HR) 30 MG TAB.ER.24H PO SCH (07:50)
[2017-10-04] MEDS: Pregabalin 75 MG CAPSULE PO SCH (07:50)
[2017-10-04] MEDS: Fluticasone Propionate Nasal 50 MCG/SPRAY BOTTLE NS SCH (07:50)
[2017-10-04] MEDS: Cholecalciferol (D-3) 1,000 UNIT TABLET PO SCH (08:05)
[2017-10-04 08:37] LABS: Estimated Average Glucose 143 mg/dl; Hemoglobin A1C 6.6 %
--- NOTE | 2017-10-04 10:24 | Discharge Summary ---
- NOTES TO OUTPATIENT PROVIDER Notes to Outpatient Provider: Patient is monitoring weight daily - wt log Orders not resulted at time of discharge: Pending orders 10/02/17 14:10 NM cade perf SPECT multi [NM] Routine 10/03/17 00:32 A1C [Hgb A1C] AM 0400 10/05/17 04:00 Complete Blood Count [HEME] AM 0400 Comprehensive Metabolic Panel AM 0400 10/06/17 04:00 Complete Blood Count [HEME] AM 0400 Comprehensive Metabolic Panel AM 0400 Date of Encounter: 10/04/17 Time of Encounter: 10:22 - Discharge Diagnosis (1) Acute exacerbation of CHF (congestive heart failure) Priority: Primary Status: Acute Comments: 1 preserved ejection fraction on echocardiogram no major valvular abnormalities she did undergo a stress test which was negative with no ischemia. She was diuresed and her symptoms improved she was seen by cardiology who suggests CHF diet and fluid restriction . Advised patient to weigh herself daily and keep a log she will follow-up with her primary care physician as an outpatient Qualifiers: Heart failure type: diastolic Qualified Code(s): I50.33 - Acute on chronic diastolic (congestive) heart failure (2) Chest pain Priority: Primary Status: Acute Comments: Patient underwent cardiac stress test which was negative for any ischemia. Echocardiogram showed preserved ejection fraction cardiac troponins were negative. Patient will be discharged home and she will follow up with primary care physician Qualifiers: Chest pain type: other chest pain Qualified Code(s): R07.89 - Other chest pain; R07.8 - Other chest pain (3) SOB (shortness of breath) Priority: Secondary Status: Acute Comments: This has improved -and she has returned to her baseline (4) Tobacco abuse counseling Priority: Secondary Status: Acute Comments: Encouraged patient to stop smoking (5) CAD (coronary artery disease) Priority: Secondary Status: Chronic Comments: Continue with aspirin and statin beta ciara and Imdur Qualifiers: Coronary Disease-Associated Artery/Lesion type: [place] artery [place] vs. transplanted heart: [place] heart Associated angina: with unspecified angina Qualified Code(s): I25.119 - Atherosclerotic heart disease of [place] coronary artery with unspecified angina pectoris (6) COPD (chronic obstructive pulmonary disease) Priority: Secondary Status: Chronic Comments: Continue with bronchodilators at home encouraged patient to stop smoking Qualifiers: COPD type: unspecified COPD Qualified Code(s): J44.9 - Chronic obstructive pulmonary disease, unspecified (7) Diabetes Priority: Secondary Status: Chronic Comments: Continue with home medications Qualifiers: Diabetes mellitus type: type 2 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 Enriquez is a 52 year old female past history of hypertension hyperlipidemia diabetes COPD she is active smoker coronary artery disease with stent placement to RCA last heart catheter was August 2016. Patient initially presented with increasing shortness of breath weight gain and orthopnea as well as chest pain. No changes on EKG troponins were negative 3 BMP was 317 she underwent a stress test which showed no reversible ischemia echocardiogram obtained with preserved ejection fraction no major valvular abnormalities. Patient was diuresed and was seen by cardiology who advised dietary restrictions as well as fluid restriction. I examined the patient at bedside advised the patient on low -salt diet as well as a 1500 mL fluid restriction. Advised patient to weigh herself daily and to keep a log. She is to follow-up with her primary care physician since this provider noticed her past and can adjust medications as needed. Patient verbalized understanding she is hemodynamically stable at this time and she is ready for discharge - Time Spent with Patient Total time spent providing and/or coordinating discharge services: - Discharge Medications Home Medications: Aspirin 81 mg PO QAM 03/17/15 [History] Atorvastatin [Lipitor] 80 mg PO QPM 03/17/15 [History] Insulin Glargine,Hum.rec.anlog [Lantus Solostar] 35 unit SQ HS 03/17/15 [History ] Metformin [Glucophage] 1,000 mg PO BID 03/17/15 [History] Metoprolol [Lopressor] 25 mg PO BID 03/17/15 [History] Pregabalin [Lyrica] 150 mg PO TID 03/17/15 [History] Lansoprazole [Prevacid] 30 mg PO DAILY 06/06/15 [History] Losartan/Hydrochlorothiazide [Hyzaar 50-12.5 Tablet] 1 tab PO QAM 06/06/15 [ History] Nitroglycerin 0.4 mg SL AD PRN 06/06/15 [History] Ropinirole [Requip] 0.5 mg PO HS 06/06/15 [History] Mometasone Furoate [Nasonex] 2 spray NS DAILY 11/09/15 [History] Ondansetron HCl [Zofran] 4 - 8 mg PO TID PRN 11/09/15 [History] Oxygen 2 l NS AD 11/09/15 [History] Albuterol Neb [AccuNeb] 0.63 mg IH Q4H PRN #25 units 01/23/16 [Rx] Isosorbide MONOnitrate (24 HR) [Imdur] 15 mg PO DAILY #30 tab.er.24h 08/27/16 [ Rx] Ranitidine HCl [Heartburn Relief] 150 mg PO BID 03/17/17 [History] Ipratropium/Albuterol Neb [Duoneb] 3 ml IH [id number] PRN #30 03/20/17 [Rx] Ergocalciferol (VITAMIN D2) [Vitamin D2] 50,000 unit PO 2XW 10/02/17 [History] Fluticasone Propionate Nasal [Flonase] 1 spr NS DAILY 10/02/17 [History] Allergies/Adverse Reactions: 3 Allergy/AdvReac Type Severity Reaction Status Date / Time No Known Allergies Allergy Verified 10/02/17 11:00 Date of admission: 10/02/17 13:57 Primary care physician: Huong Kitchen CNP Consults: 10/02/17 14:03 Consult to Provider Relations Consultant [CONS] Routine Reason for SW Consult: Please assesa patient for possible home needs for post -discharge planning. 10/03/17 16:11 Consult to Cardiology [CONS] Routine Comment: Consulting Provider: Cardiology Nikole Reason for Consult: chf Time Notified: 16:12 Call Completed: Yes Discharging clinician: Margo Reyes Anticipated date of discharge: 10/04/17 - Constitutional Vitals: Temp Pulse Resp BP Pulse Ox 98.1 F 72 16 191/95 92 10/04/17 07:48 10/04/17 07:48 10/04/17 07:48 10/04/17 07:48 10/04/17 07:48 General appearance: Present: A&O X 3 - Head Head exam: Present: atraumatic, normocephalic - Eye Eye exam: Present: PERRL, conjuntiva pink, sclera anicteric Pupils: Present: PERRL - Neck Neck exam general surgery: Present: supple, trachea midline. Absent: lymphadenopathy - Respiratory Respiratory exam: Present: CTAB. Absent: accessory muscle use, rales, rhonchi, wheezes - Cardiovascular Cardiovascular exam: Present: RRR, +S1, +S2. Absent: diastolic murmur, gallop, rubs, systolic murmur - GI/Abdominal GI/Abdominal exam: Present: normal bowel sounds, soft, no peritoneal signs. Absent: distended, tenderness - Extremities Exam Extremities exam: Present: warm, radial pulses palpable and symmetrical. Absent : calf tenderness, cyanotic, pedal edema - Neurological Exam Neurological exam: Present: CN II-XII intact, oriented X3, no focal deficits. Absent: pronater drift, facial droop, speech deficit - Skin Skin exam: Present: dry, intact - Patient Status Disposition: Home, Self-Care Condition: Fair Functional capacity at discharge: independent ambulation Overall status at discharge: patient is progressing back to baseline - Discharge Instructions Instructions: Heart Failure (DC), Chest Pain (DC) Follow Up With: Huong Kitchen, OPTIMIZATION ANALYST [Primary Care Provider] - - Diet and Activity Activity: resume usual activities as tolerated Diet: low salt diet, other
[2017-10-04 11:17] VITALS: BP 144/83
--- NOTE | 2017-10-06 22:36 | Electrocardiograph Report ---
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
== END 2017-10-04 12:40 | disposition home or self-care (01) ==
LOC: 2SOUTHHOLD 10:55 → EMEROO 10:55 → 2SOUTHHOLD 14:15 → 3BNU 17:35
PROVIDERS: ADMIT Student in an Organized Health Care Education/Training Program; ATTEND Student in an Organized Health Care Education/Training Program

== ENCOUNTER 2020-02-06 16:09 | Observation (INO) ==
[2020-02-06] MEDS ORDERED: Nitroglycerin 0.4 MG TAB.SUBL SL PRN (16:16)
[2020-02-06] MEDS ORDERED: Aspirin 81 MG TAB.CHEW PO ONE (16:16)
[2020-02-06 16:43] LABS: INR 0.9; Prothrombin Time 10.4 Seconds (9.4-12.1)
[2020-02-06 16:46] LABS: Activated Partial Thrombo Time 29.9 Seconds (26.0-36.0); Hematocrit 42.8 % (35.3-44.9); Hemoglobin 14.3 g/dL (11.5-15.4); Lymphocytes # 4.5 K/mcL (0.6-4.6); Mean Corpuscular HGB Conc 33.4 g/dL (31.6-35.5); Mean Corpuscular Hemoglobin 30.9 pg (28.0-33.3); Mean Corpuscular Volume 92.4 fL (83.0-100.0); Platelet Count 177 K/mcL (140-400); Red Blood Count 4.63 M/mcL (3.82-4.97); White Blood Count 12.4 K/mcL (4.3-11.1)
[2020-02-06 16:59] LABS: BUN/Creatinine Ratio 18 (6-26); Blood Urea Nitrogen 12 mg/dL (6-20); Calcium 9.3 mg/dL (8.6-10.3); Carbon Dioxide 28 mEq/L (23-29); Chloride 105 mEq/L (98-107); Glucose 150 mg/dL (70-105); Osmolality,Calculated 297 (280-300); Potassium 3.8 mEq/L (3.5-5.1); Sodium 142 mEq/L (136-145); Troponin I < 0.03 ng/mL (< 0.04); eGFR For African Americans > 60 (> 60); eGFR For Non-African Americans > 60 (> 60)
[2020-02-06 17:16] LABS: Eosinophils # 0.7 K/mcL (0.0-0.6); Monocytes # 0.3 K/mcL (0.0-1.3); Neutrophils # 6.9 K/mcL (1.6-8.9); Platelet Estimate Normal (Normal)
[2020-02-06 17:17] LABS: Large Platelets Present (Not Present); Reactive Lymphocytes Present (Not Present)
[2020-02-06] MEDS ORDERED: Naloxone 0.4 MG/ML INJ IVP PRN (17:57)
[2020-02-06] MEDS ORDERED: D5% in Water 1,000 ML IVC PRN (17:58)
[2020-02-06] MEDS ORDERED: *HR* Dextrose 50 % in Water (Vial) 50 ML VIAL IVP PRN (17:58)
[2020-02-06] MEDS ORDERED: Perflutren Lipid Microsphere 1.3 ML in 0.9 % Sodium Chloride 8.7 ML IVP PRN (17:58)
[2020-02-06] MEDS ORDERED: Dextrose Gel 15 GM/37.5 ML TUBE PO PRN ×2 (17:58)
[2020-02-06] MEDS ORDERED: Morphine Sulfate 2 MG/ML SYRINGE IVP ONE (18:07)
[2020-02-06] MEDS ORDERED: Albuterol 2.5 MG/3 ML NEBULIZER IH PRN (18:21)
[2020-02-06] MEDS ORDERED: Fluticasone Propionate Nasal 50 MCG/SPRAY BOTTLE NS PRN (18:21)
[2020-02-06] MEDS: rOPINIRole 1 MG TABLET PO SCH (19:58)
[2020-02-06] MEDS: Pregabalin 75 MG CAPSULE PO SCH (19:58)
[2020-02-06] MEDS: Famotidine 20 MG TABLET PO SCH (19:58)
[2020-02-07 04:53] LABS: Basophils % 0.3 %; Eosinophils # 0.3 K/mcL (0.0-0.6); Eosinophils % 3.8 %; Hematocrit 39.8 % (35.3-44.9); Hemoglobin 12.8 g/dL (11.5-15.4); Immature Granulocytes % 0.3 % (0-4); Lymphocytes # 3.1 K/mcL (0.6-4.6); Lymphocytes % 45.1 %; Mean Corpuscular HGB Conc 32.2 g/dL (31.6-35.5); Mean Corpuscular Volume 93.2 fL (83.0-100.0); Mean Platelet Volume 10.3 fL (9.4-12.4); Monocytes # 0.5 K/mcL (0.0-1.3); Monocytes % 7.1 %; Neutrophils # 2.9 K/mcL (1.6-8.9); Platelet Count 148 K/mcL (140-400); Red Blood Count 4.27 M/mcL (3.82-4.97); Red Cell Distribution Width 13.1 % (11.5-14.5); Segmented Neutrophils % 43.4 %; White Blood Count 6.8 K/mcL (4.3-11.1)
[2020-02-07 05:09] LABS: BUN/Creatinine Ratio 25 (6-26); Blood Urea Nitrogen 14 mg/dL (6-20); Carbon Dioxide 27 mEq/L (23-29); Chloride 107 mEq/L (98-107); Glucose 189 mg/dL (70-105); Osmolality,Calculated 298 (280-300); Potassium 3.9 mEq/L (3.5-5.1); Sodium 141 mEq/L (136-145); eGFR For African Americans > 60 (> 60); eGFR For Non-African Americans > 60 (> 60)
[2020-02-07] MEDS: *HR* Heparin 5,000 UNIT/ML VIAL SQ SCH ×2 (05:41→17:30)
[2020-02-07 06:18] LABS: Bacteria,Urine Few per hpf (None-Few); Bilirubin,Urine Negative (Negative); Blood,Urine Negative (Negative); Calcium Oxalate Crystals,Urine Present; Clarity,Urine Clear (Clear); Color,Urine Yellow (Yellow); Glucose,Urine (UA) 300 mg/dL (Normal); Hyaline Casts,Urine Few per lpf (None Seen); Ketones,Urine Negative (Negative); Leukocyte Esterase,Urine Moderate (Negative); Mucus,Urine Moderate per lpf (None-Few); Nitrite,Urine Negative (Negative); Protein,Urine 50 mg/dL (Neg-Trace); Specific Gravity,Urine > 1.030 (1.010-1.025); Squamous Epithelial Cell,Urine Moderate per hpf (None-Few); WBC,Urine 15-30 per hpf (0-3)
[2020-02-07] MEDS ORDERED: Regadenoson 0.4 MG/5 ML SYRINGE IVP ONE (06:18)
[2020-02-07] MEDS: Insulin LISPRO 300 UNITS/3 ML VIAL SQ SCH ×3 (07:06→17:33)
[2020-02-07] MEDS: Furosemide 20 MG TABLET PO SCH (09:37)
[2020-02-07] MEDS: Famotidine 20 MG TABLET PO SCH ×2 (09:37→19:48)
[2020-02-07] MEDS: Pregabalin 75 MG CAPSULE PO SCH ×3 (09:37→19:49)
[2020-02-07] MEDS: Aspirin Enteric Coated 81 MG Tablet PO SCH (09:38)
[2020-02-07] MEDS: Losartan/HCTZ 50-12.5 TABLET PO SCH (09:39)
[2020-02-07] MEDS: Acetaminophen 325 MG TABLET PO PRN ×2 (11:02→19:51)
[2020-02-07] MEDS ORDERED: Morphine Sulfate 2 MG/ML SYRINGE IVP ONE (15:55)
[2020-02-07] MEDS: Isosorbide MONOnitrate (24 HR) 30 MG TAB.ER.24H PO SCH (17:36)
[2020-02-07] MEDS: rOPINIRole 1 MG TABLET PO SCH (19:48)
[2020-02-08 03:56] LABS: Hematocrit 38.9 % (35.3-44.9); Hemoglobin 12.7 g/dL (11.5-15.4); Mean Corpuscular HGB Conc 32.6 g/dL (31.6-35.5); Mean Corpuscular Hemoglobin 30.3 pg (28.0-33.3); Mean Corpuscular Volume 92.8 fL (83.0-100.0); Mean Platelet Volume 10.1 fL (9.4-12.4); Platelet Count 142 K/mcL (140-400); Red Blood Count 4.19 M/mcL (3.82-4.97); Red Cell Distribution Width 12.9 % (11.5-14.5); White Blood Count 7.2 K/mcL (4.3-11.1)
[2020-02-08] MEDS: *HR* Heparin 5,000 UNIT/ML VIAL SQ SCH (05:29)
[2020-02-08] MEDS: Acetaminophen 325 MG TABLET PO PRN (05:29)
[2020-02-08] MEDS: Insulin LISPRO 300 UNITS/3 ML VIAL SQ SCH ×2 (08:12→11:44)
[2020-02-08] MEDS: Furosemide 20 MG TABLET PO SCH (08:13)
[2020-02-08] MEDS: Isosorbide MONOnitrate (24 HR) 30 MG TAB.ER.24H PO SCH (08:13)
[2020-02-08] MEDS: Pregabalin 75 MG CAPSULE PO SCH (08:13)
[2020-02-08] MEDS: Aspirin Enteric Coated 81 MG Tablet PO SCH (08:13)
[2020-02-08] MEDS: Losartan/HCTZ 50-12.5 TABLET PO SCH (08:13)
[2020-02-08] MEDS: Famotidine 20 MG TABLET PO SCH (08:14)
[2020-02-08 10:22] LABS: Estimated Average Glucose 200 mg/dl; Hemoglobin A1C 8.6 %
[2020-02-08] MEDS ORDERED: Ranolazine 500 MG TAB.ER.12H PO SCH (11:15)
[2020-02-08 11:37] VITALS: BP 149/81
[2020-02-08] MEDS ORDERED: amLODIPine 5 MG TABLET PO SCH (12:00)
== END 2020-02-08 12:30 | disposition home or self-care (01) ==
LOC: 3BNU 16:09 → EMEROOARM 16:09 → 3BNU 18:17
PROVIDERS: ADMIT Internal Medicine; ATTEND Internal Medicine

== ENCOUNTER 2020-08-31 14:11 | Observation (INO) ==
[2020-08-31 15:26] LABS: Basophils % 0.2 %; Eosinophils # 0.2 K/mcL (0.0-0.6); Eosinophils % 2.4 %; Hematocrit 35.9 % (35.3-44.9); Immature Granulocytes % 0.5 % (0-4); Lymphocytes # 2.9 K/mcL (0.6-4.6); Lymphocytes % 30.9 %; Mean Corpuscular HGB Conc 33.4 g/dL (31.6-35.5); Mean Corpuscular Hemoglobin 30.8 pg (28.0-33.3); Mean Corpuscular Volume 92.1 fL (83.0-100.0); Mean Platelet Volume 9.8 fL (9.4-12.4); Monocytes # 0.5 K/mcL (0.0-1.3); Monocytes % 5.6 %; Neutrophils # 5.7 K/mcL (1.6-8.9); Platelet Count 163 K/mcL (140-400); Red Cell Distribution Width 13.3 % (11.5-14.5); Segmented Neutrophils % 60.4 %; White Blood Count 9.5 K/mcL (4.3-11.1)
[2020-08-31 15:45] LABS: BUN/Creatinine Ratio 16 (6-26); Blood Urea Nitrogen 8 mg/dL (6-20); Calcium 8.3 mg/dL (8.6-10.3); Carbon Dioxide 25 mEq/L (23-29); Chloride 108 mEq/L (98-107); Glucose 193 mg/dL (70-105); Osmolality,Calculated 294 (280-300); Potassium 3.1 mEq/L (3.5-5.1); Sodium 140 mEq/L (136-145); Troponin I < 0.03 ng/mL (< 0.04); eGFR For African Americans > 60 (> 60); eGFR For Non-African Americans > 60 (> 60)
[2020-08-31] MEDS ORDERED: Furosemide 40 MG/4 ML VIAL IVP ONE (16:09)
[2020-08-31] MEDS ORDERED: Naloxone 0.4 MG/ML INJ IVP PRN (17:21)
[2020-08-31] MEDS ORDERED: Ondansetron ODT 4 MG TAB.RAPDIS SL PRN (17:21)
[2020-08-31] MEDS ORDERED: Acetaminophen 325 MG TABLET PO PRN (17:21)
[2020-08-31] MEDS ORDERED: Mag Hydrox/Al Hydrox/Simeth 30 ML UDC PO PRN (17:21)
[2020-08-31] MEDS ORDERED: Perflutren Lipid Microsphere 1.3 ML in 0.9 % Sodium Chloride 8.7 ML IVP PRN (17:25)
[2020-08-31 17:44] LABS: Magnesium 1.5 mg/dL (1.6-2.6)
[2020-08-31] MEDS ORDERED: Aspirin 325 MG TABLET PO ONE (18:02)
[2020-08-31] MEDS ORDERED: *HR* Dextrose 50 % in Water (Vial) 50 ML VIAL IVP PRN (18:03)
[2020-08-31] MEDS ORDERED: D5% in Water 1,000 ML IVC PRN (18:03)
[2020-08-31] MEDS ORDERED: Dextrose Gel 15 GM/37.5 ML TUBE PO PRN ×2 (18:03)
[2020-08-31] MEDS ORDERED: Albuterol 2.5 MG/3 ML NEBULIZER IH PRN (18:46)
[2020-08-31] MEDS ORDERED: Nitroglycerin 0.4 MG TAB.SUBL SL PRN (18:51)
[2020-08-31] MEDS: predniSONE 20 MG TABLET PO SCH (20:08)
[2020-08-31] MEDS: Ipratropium/Albuterol Neb 3 ML IH SCH (20:53)
[2020-08-31] MEDS ORDERED: Insulin LISPRO 300 UNITS/3 ML VIAL SUBQ SCH (21:00)
[2020-08-31] MEDS: Pregabalin 75 MG CAPSULE PO SCH (21:55)
[2020-08-31 22:14] LABS: Adenovirus Not Detected (Not Detect); Bordetella Pertussis Not Detected (Not Detect); Chlamydophila pneumoniae Not Detected (Not Detect); Coronavirus 229E Not Detected (Not Detect); Coronavirus HKU1 Not Detected (Not Detect); Coronavirus NL63 Not Detected (Not Detect); Coronavirus OC43 Not Detected (Not Detect); Human Metapneumovirus Not Detected (Not Detect); Human Rhinovirus/Enterovirus Not Detected (Not Detect); Influenza A Subtype 2009 H1 Not Detected (Not Detect); Influenza B Not Detected (Not Detect); Mycoplasma pneumoniae Not Detected (Not Detect); Parainfluenza Virus 1 Not Detected (Not Detect); Parainfluenza Virus 2 Not Detected (Not Detect); Parainfluenza Virus 3 Not Detected (Not Detect); Parainfluenza Virus 4 Not Detected (Not Detect); Respiratory Syncytial Virus Not Detected (Not Detect); SARS-CoV-2 Not Detected (Not Detect)
[2020-09-01] MEDS: Ipratropium/Albuterol Neb 3 ML IH SCH ×3 (00:48→08:02)
[2020-09-01] MEDS ORDERED: *HR* Heparin 5,000 UNIT/ML VIAL SQ SCH (06:00)
[2020-09-01 06:33] VITALS: BP 154/88
[2020-09-01 07:16] LABS: Hematocrit 39.1 % (35.3-44.9); Hemoglobin 12.8 g/dL (11.5-15.4); Mean Corpuscular HGB Conc 32.7 g/dL (31.6-35.5); Mean Corpuscular Hemoglobin 30.5 pg (28.0-33.3); Mean Corpuscular Volume 93.3 fL (83.0-100.0); Mean Platelet Volume 10.3 fL (9.4-12.4); Platelet Count 173 K/mcL (140-400); Red Blood Count 4.19 M/mcL (3.82-4.97); Red Cell Distribution Width 13.3 % (11.5-14.5); White Blood Count 6.1 K/mcL (4.3-11.1)
[2020-09-01] MEDS ORDERED: Insulin LISPRO 300 UNITS/3 ML VIAL SUBQ SCH (07:30)
[2020-09-01] MEDS ORDERED: Isovue-370 500 ML BOTTLE IVP ONE (07:59)
[2020-09-01] MEDS: Pregabalin 75 MG CAPSULE PO SCH (08:55)
[2020-09-01] MEDS: predniSONE 20 MG TABLET PO SCH (08:56)
[2020-09-01 08:59] LABS: BUN/Creatinine Ratio 18 (6-26); Blood Urea Nitrogen 9 mg/dL (6-20); Calcium 8.8 mg/dL (8.6-10.3); Carbon Dioxide 26 mEq/L (23-29); Chloride 109 mEq/L (98-107); Chol/HDL Ratio 2.9 (0-4.9); Cholesterol 132 mg/dL (< 200); Glucose 185 mg/dL (70-105); HDL Cholesterol 46 mg/dL (40-59); LDL Cholesterol,Calculated 72 mg/dL (< 100); Osmolality,Calculated 297 (280-300); Potassium 3.8 mEq/L (3.5-5.1); Sodium 142 mEq/L (136-145); Triglycerides 70 mg/dL (< 150); eGFR For African Americans > 60 (> 60); eGFR For Non-African Americans > 60 (> 60)
[2020-09-01] MEDS ORDERED: Furosemide 20 MG/2 ML VIAL IVP SCH (09:00)
== END 2020-09-01 12:39 | disposition home or self-care (01) ==
LOC: EMEROOARM 14:11 → 3BNU 14:11 → SUATTDRO 17:28 → 3BNU 18:30
PROVIDERS: ADMIT Family Medicine; ATTEND Family Medicine

== ENCOUNTER 2020-12-10 10:19 | Observation (INO) ==
[2020-12-10] MEDS ORDERED: 0.9 % Sodium Chloride 1,000 ML IVC SCH (10:30)
[2020-12-10] MEDS ORDERED: *HR* Ticagrelor 90 MG TABLET PO ONE (10:58)
[2020-12-10] MEDS ORDERED: Aspirin 81 MG TAB.CHEW PO ONE (10:58)
[2020-12-10] MEDS ORDERED: *HR* Heparin 5,000 UNIT/ML VIAL IVP PRN ×2 (10:58)
[2020-12-10] MEDS ORDERED: *HR* Heparin 5,000 UNIT/ML VIAL IVP ONE (10:58)
[2020-12-10] MEDS ORDERED: Aspirin 81 MG TAB.CHEW ONE (10:59)
[2020-12-10] MEDS ORDERED: *HR* Heparin 5,000 UNIT/ML VIAL ONE (10:59)
[2020-12-10] MEDS ORDERED: *HR* Ticagrelor 90 MG TABLET ONE (10:59)
[2020-12-10] MEDS ORDERED: 0.9 % Sodium Chloride 1,000 ML ONE (10:59)
[2020-12-10] MEDS ORDERED: Heparin 25,000UNIT/250ML 1/2NS 25,000 UNIT/250 ML IV.SOLN IVC SCH (11:00)
[2020-12-10] MEDS ORDERED: Heparin 1,000 UNITS/500 mL 500 ML ONE (11:02)
[2020-12-10] MEDS ORDERED: *HR* Heparin 10,000 UNIT/10 ML VIAL ONE (11:02)
[2020-12-10] MEDS ORDERED: ISOVUE-370 200 ML INFUS..BTL ONE (11:02)
[2020-12-10] MEDS ORDERED: *HR* Midazolam HCl 2 MG/2 ML VIAL ONE (11:02)
[2020-12-10] MEDS ORDERED: *HR* FentaNYL (PF) 100 MCG/2 ML VIAL ONE (11:02)
[2020-12-10] MEDS ORDERED: Nitroglycerin 1,000 MCG/5 ML VIAL IV ONE (11:02)
[2020-12-10] MEDS ORDERED: 0.9 % Sodium Chloride 2,000 ML ONE (11:02)
[2020-12-10 11:09] LABS: Hematocrit 46.5 % (35.3-44.9); Hemoglobin 16.2 g/dL (11.5-15.4); Mean Corpuscular HGB Conc 34.8 g/dL (31.6-35.5); Mean Corpuscular Hemoglobin 31.2 pg (28.0-33.3); Mean Corpuscular Volume 89.4 fL (83.0-100.0); Mean Platelet Volume 10.1 fL (9.4-12.4); Platelet Count 191 K/mcL (140-400); White Blood Count 11.1 K/mcL (4.3-11.1)
[2020-12-10] MEDS ORDERED: Heparin 25,000UNIT/250ML 1/2NS 25,000 UNIT/250 ML IV.SOLN ONE (11:09)
[2020-12-10 11:11] LABS: VBG HCO3 28 mEq/L (21-27); VBG PCO2 47 mmHg (41-51); VBG PH 7.39 pH Units (7.32-7.42); VBG PO2 60 mmHg (25-50)
[2020-12-10 11:19] LABS: Bilirubin,Urine Negative (Negative); Blood,Urine Negative (Negative); Clarity,Urine Clear (Clear); Color,Urine Light-Yellow (Yellow); Glucose,Urine (UA) >=1000 mg/dL (Normal); Ketones,Urine Negative (Negative); Leukocyte Esterase,Urine Negative (Negative); Nitrite,Urine Negative (Negative); Protein,Urine Negative (Neg-Trace); RBC,Urine 0-3 per hpf (0-3); Specific Gravity,Urine 1.023 (1.010-1.025); Squamous Epithelial Cell,Urine Few per hpf (None-Few); Urobilinogen,Urine Normal (Normal); WBC,Urine 0-3 per hpf (0-3)
[2020-12-10 11:20] LABS: Activated Partial Thrombo Time 26.7 Seconds (26.0-36.0)
[2020-12-10 11:35] LABS: Amphetamine Screen,Urine Positive ng/mL (Cutoff=1000); Barbiturate Screen,Urine Negative ng/mL (Cutoff=200); Benzodiazepines Screen,Urine Negative ng/mL (Cutoff=200); Cannabinoid Screen,Urine Negative ng/mL (Cutoff = 50); Cocaine Screen,Urine Negative ng/mL (Cutoff= 300); Opiate Screen,Urine Negative ng/mL (Cutoff=300); Phencyclidine Screen,Urine Negative ng/mL (Cutoff=25)
[2020-12-10 11:41] LABS: Eosinophils # 0.4 K/mcL (0.0-0.6); Lymphocytes # 4.7 K/mcL (0.6-4.6); Monocytes # 0.9 K/mcL (0.0-1.3); Platelet Estimate Normal (Normal); Reactive Lymphocytes Present (Not Present)
[2020-12-10 11:42] LABS: BUN/Creatinine Ratio 24 (6-26); Blood Urea Nitrogen 26 mg/dL (6-20); Calcium 10.2 mg/dL (8.6-10.3); Carbon Dioxide 26 mEq/L (23-29); Chloride 93 mEq/L (98-107); Glucose 422 mg/dL (70-105); Magnesium 1.8 mg/dL (1.6-2.6); Osmolality,Calculated 293 (280-300); Phosphorous 5.1 mg/dL (2.7-4.5); Potassium 4.5 mEq/L (3.5-5.1); Sodium 130 mEq/L (136-145); Troponin I < 0.03 ng/mL (< 0.04); eGFR For African Americans > 60 (> 60); eGFR For Non-African Americans 52 (> 60)
[2020-12-10] MEDS ORDERED: Ondansetron 4 MG/2 ML VIAL IVP PRN (12:05)
[2020-12-10] MEDS ORDERED: Naloxone 0.4 MG/ML INJ IVP PRN (12:05)
[2020-12-10] MEDS ORDERED: Dextrose Gel 15 GM/37.5 ML TUBE PO PRN ×2 (12:07)
[2020-12-10] MEDS ORDERED: D5% in Water 1,000 ML IVC PRN (12:07)
[2020-12-10] MEDS ORDERED: *HR* Dextrose 50 % in Water (Vial) 50 ML VIAL IVP PRN (12:07)
[2020-12-10] MEDS ORDERED: Ringers Solution, Lactated 1,000 ML IVC SCH (12:15)
[2020-12-10] MEDS ORDERED: Nitroglycerin 0.4 MG TAB.SUBL SL PRN (12:36)
[2020-12-10] MEDS ORDERED: Albuterol 2.5 MG/3 ML NEBULIZER IH PRN (12:48)
[2020-12-10] MEDS ORDERED: Fluticasone Propionate Nasal 50 MCG/SPRAY BOTTLE NS PRN (12:48)
[2020-12-10] MEDS: 0.9 % Sodium Chloride 1,000 ML IVC SCH (14:15)
[2020-12-10] MEDS: Insulin LISPRO 300 UNITS/3 ML VIAL SUBQ SCH ×2 (19:58)
[2020-12-10] MEDS: Insulin DETEMIR 100 UNIT/ML X5UNITS SUBQ SCH (20:06)
[2020-12-10] MEDS: Ranolazine 500 MG TAB.ER.12H PO SCH (20:06)
[2020-12-10] MEDS ORDERED: rOPINIRole 1 MG TABLET PO SCH (21:00)
[2020-12-11] MEDS: 0.9 % Sodium Chloride 1,000 ML IVC SCH (01:21)
[2020-12-11 04:23] LABS: Basophils % 0.4 %; Eosinophils # 0.3 K/mcL (0.0-0.6); Eosinophils % 2.6 %; Hematocrit 42.5 % (35.3-44.9); Hemoglobin 14.5 g/dL (11.5-15.4); Immature Granulocytes % 0.7 % (0-4); Lymphocytes % 35.6 %; Mean Corpuscular HGB Conc 34.1 g/dL (31.6-35.5); Mean Corpuscular Hemoglobin 31.2 pg (28.0-33.3); Mean Corpuscular Volume 91.4 fL (83.0-100.0); Mean Platelet Volume 10.4 fL (9.4-12.4); Monocytes # 0.6 K/mcL (0.0-1.3); Monocytes % 5.2 %; Neutrophils # 6.1 K/mcL (1.6-8.9); Platelet Count 155 K/mcL (140-400); Red Blood Count 4.65 M/mcL (3.82-4.97); Red Cell Distribution Width 13.2 % (11.5-14.5); Segmented Neutrophils % 55.5 %; White Blood Count 11.1 K/mcL (4.3-11.1)
[2020-12-11 04:39] LABS: BUN/Creatinine Ratio 32 (6-26); Blood Urea Nitrogen 23 mg/dL (6-20); Calcium 9.1 mg/dL (8.6-10.3); Carbon Dioxide 24 mEq/L (23-29); Chloride 101 mEq/L (98-107); Glucose 212 mg/dL (70-105); Magnesium 1.7 mg/dL (1.6-2.6); Osmolality,Calculated 288 (280-300); Phosphorous 3.6 mg/dL (2.7-4.5); Potassium 3.9 mEq/L (3.5-5.1); Sodium 134 mEq/L (136-145); eGFR For African Americans > 60 (> 60); eGFR For Non-African Americans > 60 (> 60)
[2020-12-11] MEDS: Insulin LISPRO 300 UNITS/3 ML VIAL SUBQ SCH ×3 (08:58→12:45)
[2020-12-11] MEDS: Insulin DETEMIR 100 UNIT/ML X5UNITS SUBQ SCH (08:58)
[2020-12-11] MEDS: Ranolazine 500 MG TAB.ER.12H PO SCH (08:58)
[2020-12-11] MEDS ORDERED: Isosorbide MONOnitrate (24 HR) 30 MG TAB.ER.24H PO SCH (09:00)
[2020-12-11] MEDS ORDERED: Aspirin Enteric Coated 81 MG Tablet PO SCH (09:00)
[2020-12-11 10:38] VITALS: BP 131/79
[2020-12-11] MEDS ORDERED: amLODIPine 5 MG TABLET PO SCH (12:00)
== END 2020-12-11 15:48 | disposition home or self-care (01) ==
LOC: EMEROOARM 10:19 → 2ANU 10:19 → SUATTDRO 12:13
PROVIDERS: ADMIT Internal Medicine; ATTEND Student in an Organized Health Care Education/Training Program